=== PATIENT | female | born 1950 | race Caucasian/White ===

== ENCOUNTER 2018-06-23 07:31 | Inpatient (IN) ==
--- NOTE | 2018-06-23 07:46 | Emergency Department Report ---
General Adult HPI - General Chief complaint: Nausea/Vomiting/Diarrhea Stated complaint: pelvic cramping, bloody stools Time Seen by Provider: 06/23/18 07:45 Source: patient Mode of arrival: ambulatory Limitations: no limitations - History of Present Illness HPI narrative: 68 F since to the emergency department with a chief complaint of lower abdominal cramping and bloody stool. Patient states she noted onset of symptoms yesterday evening. Cramping is mild. It is dull. No radiation. Patient has noted "a handful of stools that have contained bright red blood since onset of symptoms." Patient is not anticoagulated. She denies any trauma , travel, poorly prepared food, or recent antibiotic use. She does have a history of similar symptoms in the past when she had Escherichia coli. She was at home when her symptoms began. Symptoms have been persistent in nature since onset. No other complaints or associated symptoms. Her last EGD/colonoscopy was at this time approximately 5-6 years ago and was performed by Dr. Mcintosh. - Related Data Home Medications Medication Instructions Recorded Confirmed Atenolol [Tenormin] 12.5 mg PO BID 06/23/18 06/23/18 Cholecalciferol (Vitamin D3) 2,000 unit PO DAILY 06/23/18 06/23/18 [Vitamin D3] Levothyroxine Tab [Synthroid] 50 mcg PO MOTUWETHFR 06/23/18 06/23/18 Levothyroxine Tab [Synthroid] 100 mcg PO SUSA 06/23/18 06/23/18 Previous Rx's Medication Instructions Recorded Zestril (lisinopril) 40 mg tablet 20 mg PO BID #90 tab 10/10/17 Allergies Allergy/AdvReac Type Severity Reaction Status Date / Time ciprofloxacin Allergy Mild TORE Verified 06/23/18 09:47 STOMACH UP metronidazole Allergy Mild TORE UP Verified 06/23/18 09:47 STOMACH metoclopramide Allergy Unknown Verified 06/23/18 09:47 erythromycin base AdvReac Mild ABDOMINAL Verified 06/23/18 09:47 CRAMPS Procaine HCl Allergy Intermediate TACHYCARDIA Uncoded 04/10/18 11:31 Review of Systems Constitutional: Denies: fever, chills Eyes: Denies: eye pain, vision change ENT: Denies: ear pain, throat pain Cardiovascular: Denies: chest pain, palpitations Respiratory: Denies: cough, dyspnea Gastrointestinal: Reports: abdominal pain, diarrhea, hematochezia. Denies: nausea, vomiting, hematemesis Genitourinary: Denies: urgency, dysuria Musculoskeletal: Denies: back pain, arthralgia Integumentary: Denies: erythema, rash Neurological: Denies: headache, numbness, paresthesias Psychiatric: Denies: anxiety, depression Endocrine: Denies: polydipsia, polyuria Hematological/Lymphatic: Denies: easy bruising, lymphadenopathy Allergic/Immunologic: Denies: urticaria, itchy eyes PFS Patient Stated Medical History Cataracts Yes Hypertension Yes Gastrointestinal Bleeding Yes: HX OF WITH [facility] Medical History (Last Updated 06/23/18 @ 13:29 by AMRIK Crain) Intermittent palpitations (Chronic Medical) Situational anxiety (Acute Medical) Prediabetes (Chronic Medical) Osteoporosis (Chronic Medical) Mixed hyperlipidemia (Chronic Medical) GERD without esophagitis (Chronic Medical) Hypertension, benign (Chronic Medical) Postsurgical hypothyroidism (Chronic Medical ~1999) Clinically and chemically euthyroid. Multinodular goiter (nontoxic) (Resolved Medical) History of irradiation, presenting hazards to health (Inactive Medical) No evidence of neck mass to suggest thyroid malignancy. Colitis, enteritis, and gastroenteritis of presumed infectious origin (Resolved Medical) 2011 Melanoma (Inactive Medical) ankle - removed 1994 Surgical History: Melanoma on ankle 1994; Total hysterectomy 1996; Thyroidectomy 1999; Tonsillectomy and Adenoids 1954; Radiation on throat around mid 1949's; Basal cell cyst on head removed; Radiation treatments in nose for adenoids Family History: Family History (Last Reviewed 01/11/18 @ 09:02 by APOLINAR Romero) Mother Cancer of lung Father A-fib Brother Lupus Maternal Grandfather Liver cancer Maternal Grandmother Heart disease - Social History Smoking status: Never smoker Substance use type: does not use Alcohol intake: never Alcohol intake frequency: does not drink Physical Exam - Limitations Limitations: no limitations - General General appearance: alert, in no apparent distress - Normal Exams: Head:: Normocephalic without trauma Eyes:: Pupils are PERRLA w/ EOMI, No scleral icterus, irritation, or foreign bodies noted ENMT:: No facial trauma, nasal exudates, pharyngeal erythema, or exudates are noted Dental: No fractured, loose, or missing teeth noted Neck:: Full range of motion, without adenopathy, JVD, bruits or thyromegaly Chest/Respirations:: Clear all pierce, with good airflow, and symmetry bilaterally Cardiovascular:: Regular rate and rhythm, without murmur or gallop, Pulses 2+ all extremities, capillary refill, <2 seconds all extremities Abdomen:: Bowel sounds positive, soft, non-tender, non-distended, no hepatosplenomegaly, masses or bruits noted Lymphatic:: No lymphadenopathy, or lymphedema noted Musculoskeletal:: No tenderness, or deformity noted, good range of motion, all extremities Integumentary:: No rashes, hives, or bruising noted, hair and nails, without abnormality Neurological:: Patient is alert, and oriented, cranial nerves, motor/sensory/ cerebellar, exams w/o gross deficits, to observation Psychiatric:: Patient exhibits, appropriate attention, emotion and affect Course Vital Signs Temperature 98.5 F 06/23/18 07:31 Pulse Rate 113 H 06/23/18 07:31 Respiratory Rate 22 06/23/18 07:31 Blood Pressure 182/90 H 06/23/18 07:31 Pulse Oximetry 97 06/23/18 07:31 Temperature 99.2 F 06/23/18 16:51 Pulse Rate 70 06/23/18 16:51 Respiratory Rate 20 06/23/18 16:51 Blood Pressure 163/83 H 06/23/18 16:51 Pulse Oximetry 99 06/23/18 16:51 Medical Decision Making - [facility] Narrative Medical decision making narrative: Labs/imaging were discussed in detail with the patient and family and questions are answered. Patient is given 1 L normal saline intravenously. Patient declines offered analgesic pain medication in the emergency department. Patient is given Zosyn 4.5 g IV 1 at 1057 when sepsis was considered. She was never hypotensive in the emergency department and her lactic acid was less than 4.0. Patient is discussed with the hospitalist Dr. Santillan and will be admitted to her service in improved condition. Patient and family are in agreement with the current plan of management. No further orders from accepting physician is in agreement with the current plan of management. Patient is admitted to the hospital in improved condition. - Differential Diagnosis colitis, acute diverticulitis, GI bleed, food poisoning - Lab Data Result diagrams: 06/23/18 15:43 06/23/18 08:05 Lab Results 06/23/18 06/23/18 06/23/18 Range/Units 08:05 08:05 08:05 WBC 18.7 H (4.5-11.0) T/MM3 RBC 5.14 (4.00-5.20) M/MM3 Hgb 15.8 (12-16) GM/DL Hct 44.6 (36-46) % MCV 86.8 (80-100) UM3 MCH 30.7 (26-34) UUG MCHC 35.4 (31-37) GM/DL RDW Std Deviation 38.9 (36.9-50.2) FL Plt Count 231 (130-400) T/MM3 MPV 10.5 (9.4-12.4) UM3 Immature Gran % (Auto) Not performed Neut % (Auto) Not performed Lymph % (Auto) Not performed [place] % (Auto) Not performed Eos % (Auto) Not performed Baso % (Auto) Not performed Neut # (Auto) Not performed Lymph # (Auto) Not performed [place] # (Auto) Not performed Eos # (Auto) Not performed Baso # (Auto) Not performed Abs Immat Gran (auto) Not performed Neutrophils % (Manual) 81.0 H (33-66) % Band Neutrophils % 5.0 (0-6) % Lymphocytes % (Manual) 10.0 L (23-45) % Reactive Lymphs % 3.0 H (0-0) % Monocytes % (Manual) 1.0 (0-9.0) % Neutrophils # (Manual) 15.1 H (1.8-7.7) T/MM3 Band Neutrophils # 0.9 T/MM3 Lymphocytes # (Manual) 1.9 (1-4.8) T/MM3 Abs React Lymphs (Man) 0.6 H (0-0) T/MM3 Monocytes # (Manual) 0.2 (0-0.8) T/MM3 RBC Morph Comment Normal INR 1.02 (0.92-1.18) APTT 26.9 (24-36) SEC Turbidity < 20 (0-20) Sodium 144 (136-146) MEQ/L Potassium 3.8 (3.6-5) MEQ/L Chloride 104 (98-107) MEQ/L Carbon Dioxide 27 (22-30) MEQ/L Anion Gap 13 (5-15) meq/L BUN 15.0 (7-17) MG/DL Creatinine 0.7 (0.7-1.2) mg/dL Estimated Creat Clear 50 (>50) mL/min GFR Calculation 83 (>60) mL/min BUN/Creatinine Ratio 21 (6-26) RATIO Glucose 158 H (65-110) MG/DL Calculated Osmolality 281 H (261-280) MOSM/KG Calcium 9.4 (8.4-10.2) MG/DL Total Bilirubin 1.00 (0.20-1.30) MG/DL Icterus Index < 2 (0-7) AST 28 (14-36) U/L ALT 19 (1-35) U/L Alkaline Phosphatase 84 (38-126) U/L Troponin I (0-0.12) ng/ml Total Protein 8.0 (6.3-8.2) g/dL Albumin 4.8 (3.5-5.0) g/dL Globulin 3.2 (2.4-3.6) G/DL Albumin/Globulin Ratio 1.5 (1.1-2.2) RATIO Lipase 61 (23-300) U/L Plasma Lactate (0.6-2.2) MMOL/L Specimen Hemolysis < 15 (0-25) Ur Collection Type Urine Color (YELLOW) Urine Clarity Urine pH (5.0-8.0) Ur Specific [place] (1.015-1.025) Urine Protein (NEGATIVE) Urine Glucose (UA) (NEGATIVE) Urine Ketones (NEGATIVE) Urine Occult Blood (NEGATIVE) Urine Nitrate (NEGATIVE) Urine Bilirubin (NEGATIVE) Urine Urobilinogen (NORMAL) EU/DL Ur Leukocyte Esterase (NEGATIVE) Urine RBC (0-3) /HPF Urine WBC (0-5) /HPF Ur Squamous Epith Cells Urine Bacteria (NEGATIVE) Urine Mucus Ur Culture Indicated? Blood Type Antibody Screen 06/23/18 06/23/18 06/23/18 Range/Units 08:05 08:05 09:16 WBC (4.5-11.0) T/MM3 RBC (4.00-5.20) M/MM3 Hgb (12-16) GM/DL Hct (36-46) % MCV (80-100) UM3 MCH (26-34) UUG MCHC (31-37) GM/DL RDW Std Deviation (36.9-50.2) FL Plt Count (130-400) T/MM3 MPV (9.4-12.4) UM3 Immature Gran % (Auto) Neut % (Auto) Lymph % (Auto) [place] % (Auto) Eos % (Auto) Baso % (Auto) Neut # (Auto) Lymph # (Auto) [place] # (Auto) Eos # (Auto) Baso # (Auto) Abs Immat Gran (auto) Neutrophils % (Manual) (33-66) % Band Neutrophils % (0-6) % Lymphocytes % (Manual) (23-45) % Reactive Lymphs % (0-0) % Monocytes % (Manual) (0-9.0) % Neutrophils # (Manual) (1.8-7.7) T/MM3 Band Neutrophils # T/MM3 Lymphocytes # (Manual) (1-4.8) T/MM3 Abs React Lymphs (Man) (0-0) T/MM3 Monocytes # (Manual) (0-0.8) T/MM3 RBC Morph Comment INR (0.92-1.18) APTT (24-36) SEC Turbidity (0-20) Sodium (136-146) MEQ/L Potassium (3.6-5) MEQ/L Chloride (98-107) MEQ/L Carbon Dioxide (22-30) MEQ/L Anion Gap (5-15) meq/L BUN (7-17) MG/DL Creatinine (0.7-1.2) mg/dL Estimated Creat Clear (>50) mL/min GFR Calculation (>60) mL/min BUN/Creatinine Ratio (6-26) RATIO Glucose (65-110) MG/DL Calculated Osmolality (261-280) MOSM/KG Calcium (8.4-10.2) MG/DL Total Bilirubin (0.20-1.30) MG/DL Icterus Index (0-7) AST (14-36) U/L ALT (1-35) U/L Alkaline Phosphatase (38-126) U/L Troponin I < 0.012 (0-0.12) ng/ml Total Protein (6.3-8.2) g/dL Albumin (3.5-5.0) g/dL Globulin (2.4-3.6) G/DL Albumin/Globulin Ratio (1.1-2.2) RATIO Lipase (23-300) U/L Plasma Lactate (0.6-2.2) MMOL/L Specimen Hemolysis < 15 (0-25) Ur Collection Type Urine, void-cc/notcc Urine Color Other (YELLOW) Urine Clarity Clear Urine pH 6.5 (5.0-8.0) Ur Specific [place] <=1.005 L (1.015-1.025) Urine Protein Negative (NEGATIVE) Urine Glucose (UA) Negative (NEGATIVE) Urine Ketones Negative (NEGATIVE) Urine Occult Blood 1+ A (NEGATIVE) Urine Nitrate Negative (NEGATIVE) Urine Bilirubin Negative (NEGATIVE) Urine Urobilinogen 0.2 (NORMAL) EU/DL Ur Leukocyte Esterase Negative (NEGATIVE) Urine RBC 0-1 (0-3) /HPF Urine WBC 0-1 (0-5) /HPF Ur Squamous Epith Cells 0-5 Urine Bacteria None seen (NEGATIVE) Urine Mucus Present Ur Culture Indicated? Cult not indicated Blood Type O Positive Antibody Screen Negative 06/23/18 Range/Units 10:03 WBC (4.5-11.0) T/MM3 RBC (4.00-5.20) M/MM3 Hgb (12-16) GM/DL Hct (36-46) % MCV (80-100) UM3 MCH (26-34) UUG MCHC (31-37) GM/DL RDW Std Deviation (36.9-50.2) FL Plt Count (130-400) T/MM3 MPV (9.4-12.4) UM3 Immature Gran % (Auto) Neut % (Auto) Lymph % (Auto) [place] % (Auto) Eos % (Auto) Baso % (Auto) Neut # (Auto) Lymph # (Auto) [place] # (Auto) Eos # (Auto) Baso # (Auto) Abs Immat Gran (auto) Neutrophils % (Manual) (33-66) % Band Neutrophils % (0-6) % Lymphocytes % (Manual) (23-45) % Reactive Lymphs % (0-0) % Monocytes % (Manual) (0-9.0) % Neutrophils # (Manual) (1.8-7.7) T/MM3 Band Neutrophils # T/MM3 Lymphocytes # (Manual) (1-4.8) T/MM3 Abs React Lymphs (Man) (0-0) T/MM3 Monocytes # (Manual) (0-0.8) T/MM3 RBC Morph Comment INR (0.92-1.18) APTT (24-36) SEC Turbidity (0-20) Sodium (136-146) MEQ/L Potassium (3.6-5) MEQ/L Chloride (98-107) MEQ/L Carbon Dioxide (22-30) MEQ/L Anion Gap (5-15) meq/L BUN (7-17) MG/DL Creatinine (0.7-1.2) mg/dL Estimated Creat Clear (>50) mL/min GFR Calculation (>60) mL/min BUN/Creatinine Ratio (6-26) RATIO Glucose (65-110) MG/DL Calculated Osmolality (261-280) MOSM/KG Calcium (8.4-10.2) MG/DL Total Bilirubin (0.20-1.30) MG/DL Icterus Index (0-7) AST (14-36) U/L ALT (1-35) U/L Alkaline Phosphatase (38-126) U/L Troponin I (0-0.12) ng/ml Total Protein (6.3-8.2) g/dL Albumin (3.5-5.0) g/dL Globulin (2.4-3.6) G/DL Albumin/Globulin Ratio (1.1-2.2) RATIO Lipase (23-300) U/L Plasma Lactate 2.1 (0.6-2.2) MMOL/L Specimen Hemolysis (0-25) Ur Collection Type Urine Color (YELLOW) Urine Clarity Urine pH (5.0-8.0) Ur Specific [place] (1.015-1.025) Urine Protein (NEGATIVE) Urine Glucose (UA) (NEGATIVE) Urine Ketones (NEGATIVE) Urine Occult Blood (NEGATIVE) Urine Nitrate (NEGATIVE) Urine Bilirubin (NEGATIVE) Urine Urobilinogen (NORMAL) EU/DL Ur Leukocyte Esterase (NEGATIVE) Urine RBC (0-3) /HPF Urine WBC (0-5) /HPF Ur Squamous Epith Cells Urine Bacteria (NEGATIVE) Urine Mucus Ur Culture Indicated? Blood Type Antibody Screen - Radiology Data CT ABD/PELVIS: Mild descending colon and moderate sigmoid colon colitis. This could be due to infectious, inflammatory or ischemic process. - EKG Data EKG #1 EKG results narrative: Sinus rhythm. 97 bpm. No STEMI. Disposition Clinical Impression: Colitis GI bleed Qualifiers: GI bleed type/associated pathology: unspecified gastrointestinal hemorrhage type Qualified Code(s): K92.2 - Gastrointestinal hemorrhage, unspecified Disposition: [address] [facility] [place] Condition: Stable Time of Disposition: 10:32 - Seen By: physician
[2018-06-23] MEDS ORDERED: NS 1,000 ML IV ONE (07:58)
[2018-06-23] MEDS: SALINE FLUSH 10ml SYRINGE IVF PRN (08:06)
[2018-06-23] MEDS ORDERED: IOHEXOL 300mg/ml 100ml INJECTION ONE (09:20)
[2018-06-23] MEDS ORDERED: PIPERACILLIN/TAZOBACTAM 4.5 GM in NS 100 ML IV ONE (10:57)
[2018-06-23 11:56] VITALS: BMI 20.6
[2018-06-23] MEDS: POTASSIUM CHLORIDE INJ 20 MEQ in NS 1,000 ML IV SCH ×2 (12:57→22:40)
[2018-06-23] MEDS ORDERED: MORPHINE SULFATE 4mg INJECTION IVP PRN (12:59)
[2018-06-23] MEDS ORDERED: ONDANSETRON 4 MG/2 ML INJECTION IVP PRN (12:59)
--- NOTE | 2018-06-23 13:22 | History & Physical Report ---
History of Present Illness Date: 06/23/18 Chief complaint: severe sepsis, colitis HPI: Lurdes Barreto is a very pleasant 68-year-old female patient whom routinely follows with Katey Bella APRN. She reports that yesterday while running errands, she abruptly began to have lower abdominal pain and cramping. She immediately went home and reports that she "nearly passed out" and "became very sweaty and nauseated" due to her pain. She denies any vomiting. No fevers, chest pain or shortness of breath. After having a large bout of diarrhea, she reports that her pain improved. Unfortunately, as the night progressed, she began having bright red blood diarrhea stools with severe abdominal pain and cramping about every 15 minutes throughout the night. She has history of E. coli colitis about 4-5 years ago which resulted in a 6 day hospitalization. 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 She denies any recent travel, bad food exposure, new medications, recent antibiotics or sick contacts. She presented to [facility] [place] ED this morning, 06/23/18, for further evaluation. Upon arrival, she was tachycardic (HR 113) and tachypneic (RR 22) with hypertension (182/90). Labs revealed leukocytosis (WBC 18.7) with 5% bandemia. Hemoglobin was stable despite reports of significant about of bright red blood in stools. Electrolytes were relatively unremarkable with the exception of hyperglycemia (Glu 158) with a known history of prediabetes. Lactate was elevated at 2.1 and UA was unremarkable. CT abdomen/ pelvis revealed mild descending colon and moderate sigmoid colitis. She reports that she has previously been seen by Dr. Micntosh with a "normal" EGD and colonoscopy about 4 years ago. She denies any history with her or her family for ulcerative colitis, Crohn's disease, colon polyps or diverticular disease. Due to her apparent severe sepsis most likely secondary to her colitis and hematochezia, Dr. Santillan was consulted and she was admitted into inpatient status for further evaluation, close hemodynamic monitoring, IV fluids and IV antibiotics. While in the ED, she received 1L NS and Zosyn was initiated for empiric antimicrobial coverage of suspected GI pathogens given her medication allergies and intolerances. Review of Systems All systems PM: 10-point ROS was reviewed, no additional remarkable complaints except - Constitutional Constitutional: Absent: chills, fatigue, fever(s), weakness - EENMT Eyes: Absent: diplopia, loss of vision Ears: Absent: ear pain Balance: Absent: falling to one side Nose: Absent: nosebleeds, allergies Mouth/Throat: Present: dry mouth, other (metalic taste in mouth). Absent: sore throat, changes in swallowing - Cardiovascular Cardiovascular: Absent: chest pain, palpitations, syncope, dyspnea on exertion, orthopnea, edema, heart murmur Rhythm: Present: regular rhythm Vascular: Absent: pallor of an extermity, pedal edema, unilateral swelling - Respiratory Respiratory: Absent: cough, dyspnea, hemoptysis, dyspnea on exertion, wheezing, pain on inspiration - Gastrointestinal Gastrointestinal: Present: abdominal pain (lower abdomen - cramping), change in bowel habits, change in stool character, diarrhea, hematochezia, nausea. Absent : vomiting - Genitourinary Genitourinary: Absent: dysuria, flank pain, hematuria Menstruation: post hysterectomy - Musculoskeletal Musculoskeletal: Absent: back pain, deformity, limited range of motion, muscle weakness - Integumentary/Breasts Integumentary: Absent: rash - Neurological Neurological: Absent: confusion, dizziness, focal weakness, weakness - Psychiatric Psychiatric: Present: anxiety - Endocrine Endocrine: Absent: flushing, palpitations - Hematologic/Lymphatic Hematologic/Lymphatic: Absent: lymphadenopathy - Allergic/Immunologic Allergic/Immunologic: Absent: seasonal rhinorrhea Past Medical History Medical History: Medical History (Last Updated 06/23/18 @ 13:29 by AMRIK Crain) Pre-diabetes (Chronic) Intermittent palpitations (Chronic) Situational anxiety (Acute) Prediabetes (Chronic) Osteoporosis (Chronic) Mixed hyperlipidemia (Chronic) GERD without esophagitis (Chronic) Hypertension, benign (Chronic) Postsurgical hypothyroidism (Chronic) Onset Date: ~1999 Clinically and chemically euthyroid. Multinodular goiter (nontoxic) (Resolved) History of irradiation, presenting hazards to health (Inactive) No evidence of neck mass to suggest thyroid malignancy. Colitis, enteritis, and gastroenteritis of presumed infectious origin 2011 Melanoma ankle - removed 1994 Surgical History: Melanoma on ankle 1994; Total hysterectomy 1996; Subtotal thyroidectomy 1999; Tonsillectomy and Adenoids 1954; Radiation on throat around mid s for pharyngitis; Basal cell cyst on head removed; Radiation treatments in nose for adenoids as a child. Family History: Family History Mother , 56 Cancer of lung Father , 86 A-fib Hypertension Brother Lupus Diabetes Sjogren's disease Maternal Grandfather Liver cancer Maternal Grandmother Heart disease Family History: As Above - Social History Smoking status: Never smoker second hand exposure: No Substance use type: does not use Alcohol intake frequency: does not drink Housing: house Household members: spouse ( 41 years) Current occupational status: retired Does patient use chewing tobacco?: No Current residence: Apartment/Private Home Social history: PCP - Katey Bella APRN. Endo - Dr. Russell. Surg - Dr. Mcitnosh (colonscopies and EGDs) Surg - Dr. Nails (skin cancer removal) Medications Home Medications Medication Instructions Recorded Confirmed Type Zestril (lisinopril) 40 mg tablet 20 mg PO BID #90 tab 10/10/17 06/23/18 Rx Atenolol [Tenormin] 12.5 mg PO BID 06/23/18 06/23/18 History Cholecalciferol (Vitamin D3) 2,000 unit PO DAILY 06/23/18 06/23/18 History [Vitamin D3] Levothyroxine Tab [Synthroid] 50 mcg PO MOTUWETHFR 06/23/18 06/23/18 History Levothyroxine Tab [Synthroid] 100 mcg PO SUSA 06/23/18 06/23/18 History Allergies Allergy/AdvReac Type Severity Reaction Status Date / Time ciprofloxacin Allergy Mild TORE Verified 06/23/18 09:47 STOMACH UP metronidazole Allergy Mild TORE UP Verified 06/23/18 09:47 STOMACH metoclopramide Allergy Unknown Verified 06/23/18 09:47 erythromycin base AdvReac Mild ABDOMINAL Verified 06/23/18 09:47 CRAMPS Procaine HCl Allergy Intermediate TACHYCARDIA Uncoded 04/10/18 11:31 Exam Vital Signs: Temperature 98.3 F 06/23/18 11:54 Pulse Rate 97 06/23/18 11:54 Respiratory Rate 12 06/23/18 11:54 Blood Pressure 151/79 H 06/23/18 11:54 Pulse Oximetry 96 06/23/18 11:54 Height/Weight/BMI: Height 5 ft 6 in Weight 127 lb 13.89 oz Body Mass Index 20.6 Comments: Very pleasant, resting in bed with family at bedside. - Constitutional Present: no acute distress, well nourished, well developed, thin, cooperative - Routine HEENT Exam Head: Present: normocephalic, atraumatic Eye: Present: PERRL. Absent: conjunctival icterus ENT: Present: mucous membranes dry, oropharynx clear - Routine Neck Exam Present: supple, full ROM, trachea midline - Routine Chest/Breast/Axilla Exam Chest wall: Absent: pacemaker - Routine Respiratory Exam Present: CTA bilaterally. Absent: respiratory distress, wheezes - Routine Cardiovascular Exam Present: RRR, S1, S2, no murmur - Routine Abdominal Exam Present: soft, normoactive bowel sounds, tenderness (LLQ, mild), non distended. Absent: rebound, guarding - Routine Rectal Exam Comments: Reportedly grossly bloody stools per RN. - Routine Extremities Exam Present: no edema, non tender, full ROM, pulses intact - Routine Back/Spine/Pelvis Exam Back/Spine: Present: full ROM. Absent: CVA tenderness, paraspinal tenderness, vertebral tenderness - Routine Skin Exam Present: intact, dry, warm Comments: afebrile - Routine Neurological Exam Present: alert, oriented X3, CN II-XII intact, moving all extremities, hearing grossly intact, normal speech - Routine Psychiatric Exam Present: normal affect, cooperative, good insight, good judgment Results - Labs CBC & Chem 7: 06/23/18 15:43 06/23/18 08:05 Microbiology Results: Microbiology 06/23/18 10:03 Peripheral/Iv Start Blood Culture - Preliminary Culture Initiated - Results Pending 06/23/18 08:05 Peripheral/Iv Start Blood Culture - Preliminary Culture Initiated - Results Pending Assessment and Plan (1) GI bleed Current visit: Yes Status: Acute Assessment and Plan: Assessment: Severe sepsis as indicated by tachycardia, tachypnea, leukocytosis, elevated lactate. Acute colitis, descending and sigmoid, presumed infectious. History of colitis secondary to E. coli ~2013. Hypertension. Pre-diabetes. GERD. Mixed hyperlipidemia, diet controlled. Postsurgical hypothyroidism - follows with Dr. Russell. History of intermittent palpitations. Situational anxiety. Plan - 06/23/18: Admit to inpatient status under the care of Dr. Santillan. CT in ED revealed descending and sigmoid colitis. Patient was given 1L NS bolus in ED. Will continue NS with KCL 20 mEq IV at 125cc/hr for hydration. Zosyn was initiated in ED for coverage of suspected GI pathogens. Will continue Zosyn for antimicrobial coverage while awaiting stool culture as well as blood cultures. Lactate 2.1 on admission. Monitor serial lactates. Currently afebrile. Clear liquid diet, low sugar for bowel rest. Hemoglobin stable on admission. Monitor closely given grossly bloody diarrhea. Tylenol as needed for fever pain. Morphine for pain control and zofran as needed for nausea/vomiting. Recheck labs in AM to monitor blood counts, electrolytes and renal function. Consider monitoring serial hemoglobins if bloody diarrhea worsens. Upon discharge, her care will be returned to Katey Colmenares. DVT Prophylaxis: SCD's Resuscitation Status: Full Code - Time spent with patient Time with patient PN: 70 minutes - Physician Narrative Physician: Lidia Santillan MD Narrative: Date: 06/23/18 Time: 1700 I have independently evaluated and examined this patient. I reviewed the chart, the patient's history, and the ENVIRONMENTAL TECHNOLOGY PROFESSOR/PA's documented findings as above. We discussed and formulated the assessment and plan as above with additions as below: Mrs. Barreto describes abrupt onset of abdominal cramping with diaphoresis and diarrhea yesterday at approximately 4 PM followed later by onset of bloody diarrhea occurring at nearly 15 minute intervals all night long. She presented to the emergency room this morning where CT demonstrated thickening in the sigmoid colon consistent with colitis. Cramping and frequency of diarrhea are improving as the day has gone on today with approximately 2 hour interval between last 2 small stools. Patient has a past history of hemorrhagic colitis due to Escherichia coli 0157 in 2013. NAD, alert, fluent speech, 99.2; hemodynamically stable Respirations nonlabored, good airflow, breath sounds clear Regular rhythm, S1-S2 Abdomen soft, nontender, active bowel sounds present Hemoglobin 15.8-14.0; INR 1.02, PTT 26.9 seconds Lactic acid 2.1-1.3 CT abdomen pelvis reviewed by myself-thickening in sigmoid colon as noted above , no free air, no abscess. GI panel negative for tested pathogens GI bleed, colitis-infectious origins suspected Monitor serial hemoglobins in addition to plans previously described. Type and cross sent although current hemoglobins are reassuringly normal and volume of blood loss appears to be diminishing rapidly. Blood has not yet been cross-matched Case discussed with Dr. Callaway and Dr. Mcintosh; may require repeat colonoscopy if no evidence of infectious pathogen can be identified. May require repeat stool testing for pathogens when bleeding less vigorously. Continue empiric antibiotics with Zosyn although does decreased 3.375 g every 6 hours for abdominal coverage. Sepsis Assessment - Evaluation SIRS Criteria: pulse > 90 beats/minute, WBC > 12,000, RR > 20 Severe Sepsis: lactate > 2.0 mg/dL Hospital Course Summary Disclaimer: The visit summary below is not to be considered part of the above Progress Note. Hospital Course: 06/23/18: Admit to inpatient status under the care of Dr. Santillan. CT in ED revealed descending and sigmoid colitis. Patient was given 1L NS bolus in ED. Will continue NS with KCL 20 mEq IV at 125cc/hr for hydration. Zosyn was initiated in ED for coverage of suspected GI pathogens. Will continue Zosyn for antimicrobial coverage while awaiting stool culture as well as blood cultures. Lactate 2.1 on admission. Monitor serial lactates. Currently afebrile. Clear liquid diet, low sugar for bowel rest. Hemoglobin stable on admission. Monitor closely given grossly bloody diarrhea. Tylenol as needed for fever pain. Morphine for pain control and zofran as needed for nausea/vomiting. Recheck labs in AM to monitor blood counts, electrolytes and renal function. Consider monitoring serial hemoglobins if bloody diarrhea worsens. Upon discharge, her care will be returned to Katey Colmenares.
[2018-06-23] MEDS: LEVOTHYROXINE 100 MCG TABLET PO SCH (13:54)
[2018-06-23] MEDS ORDERED: PIPERACILLIN/TAZOBACTAM 4.5 GM in NS 100 ML IV SCH (16:00)
[2018-06-23] MEDS: ACETAMINOPHEN 325 MG TABLET PO PRN ×2 (17:57→23:14)
[2018-06-23] MEDS: LISINOPRIL 20 MG TABLET PO SCH (20:54)
[2018-06-23] MEDS: ATENOLOL 25 MG TABLET PO SCH (20:54)
[2018-06-23] MEDS: NS with KCL 20 mEq 1,000 ML IV SCH (22:19)
[2018-06-23] MEDS: PIPERACILLIN/TAZOBACTAM 3.375 GM in NS 100 ML IV SCH (23:14)
[2018-06-24] MEDS: LEVOTHYROXINE 100 MCG TABLET PO SCH (05:53)
[2018-06-24] MEDS: PIPERACILLIN/TAZOBACTAM 3.375 GM in NS 100 ML IV SCH ×4 (05:54→23:08)
[2018-06-24] MEDS: ACETAMINOPHEN 325 MG TABLET PO PRN ×3 (06:21→17:54)
[2018-06-24] MEDS: NS with KCL 20 mEq 1,000 ML IV SCH ×2 (08:47→13:00)
[2018-06-24] MEDS: ATENOLOL 25 MG TABLET PO SCH ×2 (08:47→20:56)
[2018-06-24] MEDS: LISINOPRIL 20 MG TABLET PO SCH ×2 (08:47→20:56)
--- NOTE | 2018-06-24 13:09 | CT Scan Report ---
Indication: Lower abd pain PROCEDURE: CT abdomen pelvis w con: Encounter: Initial Comparison: July 26, 2016 Technique: Axial CT images were performed through the abdomen and pelvis after the administration of intravenous contrast. Coronal and sagittal two-dimensional reformats. Automated Exposure Control and Iterative Reconstruction dose reducing techniques were utilized. Contrast: Omnipaque 300 67 mL Findings: The lung bases are clear. The liver, gallbladder, spleen, pancreas and adrenal glands are within normal limits. The kidneys are normal. Bladder is normal. Uterus is absent. Diffuse wall thickening and inflammation in the mid to distal sigmoid colon. There is also mild wall thickening in the descending colon. The remaining bowel appears normal. Bone windows show no acute findings. Impression: Extensive left-sided colitis could represent infectious or inflammatory colitis. Ulcerative colitis is within the differential. There is a preliminary report by [employer]. .
--- NOTE | 2018-06-24 13:13 | Progress Note ---
- Date 06/24/18 Subjective: Lurdes is seen this morning in follow up. She states that overall she is feeling better than yesterday. She does continue to have mild lower abdominal cramping with bowel movements. She did have one bowel movement this morning with a small amount of blood present. Denies having current abdominal pain or nausea. Tolerating PO clear liquid diet. Remains afebrile. BP pressure elevated 161/86. Objective Vital signs: Temperature 97.7 F 06/24/18 03:00 Pulse Rate 64 06/24/18 11:00 Respiratory Rate 16 06/24/18 11:00 Blood Pressure 161/86 H 06/24/18 11:00 Pulse Oximetry 97 06/24/18 11:00 Height/Weight/BMI: Height 1.68 m Weight 57.2 kg Body Mass Index 20.6 - Constitutional Present: no acute distress, well nourished, well developed - Routine HEENT Exam Eye: Present: EOMI ENT: Present: mucous membranes moist, dentition normal - Routine Respiratory Exam Present: CTA bilaterally. Absent: wheezes - Routine Cardiovascular Exam Present: RRR, S1, S2. Absent: murmur - Routine Abdominal Exam Present: soft, non distended, non tender. Absent: normoactive bowel sounds ( hypotensive) - Routine Extremities Exam Present: no edema - Routine Skin Exam Present: intact, dry, warm - Routine Neurological Exam Present: alert, oriented X3, CN II-XII intact - Routine Lymphatic Exam Lymphatic: Absent: adenopathy - Routine Psychiatric Exam Present: normal affect Results - Labs CBC & Chem 7: 06/24/18 12:02 06/24/18 04:16 Microbiology Results: Microbiology 06/23/18 10:03 Peripheral/Iv Start Blood Culture - Preliminary No Growth After 1 Day 06/23/18 08:05 Peripheral/Iv Start Blood Culture - Preliminary No Growth After 1 Day Assessment and Plan (1) GI bleed Current visit: Yes Status: Acute Assessment and Plan: Assessment: Severe sepsis as indicated by tachycardia, tachypnea, leukocytosis, elevated lactate. Acute colitis, descending and sigmoid, presumed infectious. History of colitis secondary to E. coli ~2013. Hypertension. Pre-diabetes. GERD. Mixed hyperlipidemia, diet controlled. Postsurgical hypothyroidism - follows with Dr. Russell. History of intermittent palpitations. Situational anxiety. Plan - 8/12 Will recheck a stool panel today Continue on IV Zosyn for antimicrobial coverage Overall bleeding has slowed down today Continue with liquid diet at this time Will discuss recommendations with Dr Mcintosh Monitor blood pressure- on lisinopril and atenolol Hgb down 2 gms from admission however is stable- Continue to follow She voices concern regarding TSH of 0.49. She would like to talk with Dr Russell regarding dose changes as she has been symptomatic Usual TSH runs around 1. Case discussed with attending, Dr Santillan DVT Prophylaxis: SCD's Resuscitation Status: Full Code - Physician Narrative Physician: Lidia Santillan MD Narrative: Date: 06/24/18 Time: 1700 I have independently evaluated and examined this patient. I reviewed the chart, the patient's history, and the STROBOSCOPE OPERATOR/PA's documented findings as above. We discussed and formulated the assessment and plan as above with additions as below: Lurdes reported significant improvement in abdominal cramping and diarrhea overnight with minimal bleeding. She is having urinary frequency from IV fluids however and getting up to void frequently interfered with sleep last night. She denied lightheadedness or dyspnea. NAD, alert Respirations nonlabored, breath sounds clear Abdomen soft, nontender, bowel sounds present Hemoglobin 15.8-14.0-13.5-13.6-13.6 LDH 519-inconsistent with ischemic bowel. Discussed with Dr. Mcintosh-plan repeat stool study if patient has stool with fecal content; if remains negative for identifiable infectious pathogen anticipate proceeding with colonoscopy approximately Monday. Formal CT report available indicating diffuse wall thickening/inflammation in the mid-distal sigmoid colon and mild wall thickening in the descending colon with normal bowel throughout the rest of the colon. Conclusion was extensive left-sided colitis-infectious versus inflammatory colitis. IV fluids decreased. Blood pressure moderately elevated-continue to monitor. Continue current management. Hospital Course Summary Disclaimer: The visit summary below is not to be considered part of the above Progress Note. Hospital Course: 06/23/18: Admit to inpatient status under the care of Dr. Santillan. CT in ED revealed descending and sigmoid colitis. 06/23/18 Patient was given 1L NS bolus in ED. Will continue NS with KCL 20 mEq IV at 125cc/hr for hydration. Zosyn was initiated in ED for coverage of suspected GI pathogens. Will continue Zosyn for antimicrobial coverage while awaiting stool culture as well as blood cultures. Lactate 2.1 on admission. Monitor serial lactates. Currently afebrile. Clear liquid diet, low sugar for bowel rest. Hemoglobin stable on admission. Monitor closely given grossly bloody diarrhea. Tylenol as needed for fever pain. Morphine for pain control and zofran as needed for nausea/vomiting. Recheck labs in AM to monitor blood counts, electrolytes and renal function. Consider monitoring serial hemoglobins if bloody diarrhea worsens. Upon discharge, her care will be returned to Katey Colmenares. 06/24/18 Will recheck a stool panel today Continue on IV Zosyn for antimicrobial coverage Overall bleeding has slowed down today Continue with liquid diet at this time Will discuss recommendations with Dr Mcintosh Monitor blood pressure- on lisinopril and atenolol Hgb down 2 gms from admission however is stable- Continue to follow She voices concern regarding TSH of 0.49. She would like to talk with Dr Russell regarding dose changes as she has been symptomatic Usual TSH runs around 1. Case discussed with attending, Dr Santillan
--- NOTE | 2018-06-24 17:01 | Consultation ---
DATE OF CONSULTATION 06/24/2018 HISTORY OF PRESENT ILLNESS This patient is 68 years old. 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 This patient was hospitalized in June 2013 at [facility] at [place], [place]. The main discharge diagnosis for this hospitalization was hemorrhagic colitis secondary to the E. coli 0157. The patient did have acute gastrointestinal tract bleeding and leukocytosis secondary to the hemorrhagic colitis. The patient was hospitalized for approximately six days at this time. The patient did develop the onset of some cramping abdominal pain, loose stools and rectal bleeding on 07/26/2016. The episodes started with some severe abdominal cramping at the lower abdomen. The patient then went to the bathroom and had a bowel movement which was initially loose and had a brown color. The patient then had another bowel movement about 30 minutes later which was mostly blood and was still watery. The patient did come to [facility] Emergency Room on 07/26/2016. White blood cell count at the emergency room was 16,100 with 1 band. Hemoglobin was 15.3. Hematocrit was 43.7. The patient did have a GI panel performed to look for infectious organisms that might be causing the diarrhea at the time of the emergency room visit. All the items on the GI panel were negative. The patient did have a CT scan of the abdomen and pelvis performed on 07/26/2016 at the time of the emergency room visit. The patient had moderate thickening of the wall of the stomach which was thought to possibly represent some inflammatory infectious gastritis. The patient had some mild thickening of the wall of the distal colon which was thought to possibly be due to underdistention or possibly mild colitis. The patient was placed on a clear liquid diet at the time of the emergency room visit. No antibiotics were started at this time. The patient was advised at the time of the emergency room visit to have a colonoscopy procedure performed. Dr. Mcintosh did start the patient on some antibiotic treatment on 07/28/2016. The patient was started on treatment with Cipro 500 mg p.o. b.i.d. and Flagyl 500 mg p.o. t.i.d. The cramping abdominal pain and loose stools and rectal bleeding all resolved over the next few days. The patient did undergo esophagogastroduodenoscopy and total colonoscopy on by Dr. Mcintosh at [facility] at [place], [place]. Findings throughout the upper gastrointestinal tract were normal at esophagogastroduodenoscopy. The patient had normal findings at the colon and rectum at total colonoscopy. There was no colonic diverticulosis. There was no inflammatory bowel disease at the colon or rectum. No colitis was found at this total colonoscopy procedure. The patient did well after this until 06/22/2018. The patient developed the onset of some lower abdominal cramping pain at 4 p.m. on 06/22/2018. The patient did get back to her home after the pain began. The patient experienced some diaphoresis. She then experienced some diarrhea without any blood. The patient then began having rectal bleeding after this and more abdominal cramping. The patient continued to have cramping lower abdominal pain and rectal bleeding throughout the night of 06/22/2018. This was bright red blood. The patient did come to [facility] Emergency Room for evaluation on the morning of 06/23/2018 because of continued cramping lower abdominal pain and rectal bleeding. At the time of evaluation at the emergency room, the white blood cell count was 18,700 with 5% bands and 81% neutrophils. Hemoglobin was 15.0. Hematocrit was 44.6. The patient had a CT scan of the abdomen and pelvis performed at the time of evaluation at the emergency room. The CT scan shows mild descending colon colitis and moderate sigmoid colon colitis. The patient was given some intravenous Zosyn in the emergency room. The patient was then admitted to [facility]. The patient states that no other family members have similar gastrointestinal tract symptoms at this time. The patient has done no recent traveling. She has not been camping out. She has had no recent antibiotic treatment. The patient is on a clear liquid diet at this time at [facility]. She is receiving intravenous Zosyn. The patient still has some lower abdominal cramping but this is improved compared to what it was at the time of admission to the hospital. The patient is still having some rectal bleeding but this has slowed down compared to the time of admission to the hospital. The patient did have a GI panel performed since she was admitted to the hospital. The GI panel was negative but it was performed on a specimen of blood and not a specimen of stool. PAST MEDICAL HISTORY PREVIOUS OPERATIONS 1. Tonsillectomy when 4 years old at [place], [place]. 2. Wide excision of malignant melanoma site at right ankle in September [address] Toan Yang at [facility] at [place], [place]. 3. Laparoscopic-assisted vaginal hysterectomy with bilateral salpingo- oophorectomy on 01/28/[address] Mcintosh at [facility] at [place], [place]. Discharge diagnoses for this hospitalization were pelvic pain, dysmenorrhea, menometrorrhagia, pelvic adhesions, chronic uterine cystic cervicitis, uterine transmural and subendometrial leiomyomata, endometrial polyp , adenomatous hyperplasia (complex hyperplasia) of the uterine endometrium and follicular cyst of right ovary. 4. Subtotal thyroidectomy on 07/04/[address] Mcintosh at [facility] at [place], [place]. 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 5. Colonoscopy on 05/04/[address] Benjamin Nails at [facility] at [place], [place]. Findings were normal at the time of this colonoscopy procedure. 6. Esophagogastroduodenoscopy and colonoscopy on 08/12/[address] Mcintosh at [facility] at [place], [place]. This was performed because the patient had experienced a recent acute episode of cramping lower abdominal pain , diarrhea, rectal bleeding and leukocytosis. This was performed for evaluation of moderate thickening of the wall of the stomach which might represent inflammatory or infectious colitis demonstrated on a 07/26/2016 CT scan of the abdomen and pelvis. This was performed for evaluation of mild thickening of the distal colon which might be due to underdistention of the colon or mild colitis demonstrated on a 07/26/2016 CT scan of the abdomen and pelvis. The patient did have normal findings at the upper gastrointestinal tract at this esophagogastroduodenoscopy procedure. The patient had normal findings at the colon and rectum at the total colonoscopy procedure. There were no colon or rectal tumors. There were no colon or rectal polyps. There was no colonic diverticulosis. There was no inflammatory bowel disease found at the colon or rectum. There was no colitis found at the colon. 7. Left cataract operation on 06/10/[address] Bhavani Marcus at the [facility] at [place], [place]. PHYSICAL EXAM VITAL SIGNS: Temperature is 97.7 degrees Fahrenheit oral. Pulse is 62. Respiratory rate is 10. Blood pressure is 145/81. Oxygen saturation is 94% on room air. ABDOMEN: The abdomen is soft and nontender at this time. There are no abdominal masses. There are some old laparoscopy incision scars. RECTUM: There are no rectal masses. There is a small amount of dark red blood in the rectal vault at this time. There is no stool in the rectal vault at this time. LABORATORY DATA White blood cell count was 18,700 with 5 bands and 81% neutrophils on 2017. Hemoglobin was 15.8. Hematocrit was 44.9. The white blood cell count is 17,900 with 5 bands and 72% neutrophils this morning. Hemoglobin is 13.6. Hematocrit is 39.2. The patient did have a GI panel performed on 06/23/2018 and this had negative results although it was performed on a specimen of blood and not on a specimen of stool. IMAGING DATA The patient had a CT scan of the abdomen and pelvis performed at the emergency room evaluation on 06/23/2018. This shows some mild descending colon colitis and some moderate sigmoid colon colitis. IMPRESSION 1. Acute episode of cramping lower abdominal pain, diarrhea, rectal bleeding and leukocytosis. 2. Mild thickening of the wall of the descending colon suggestive of mild descending colitis and moderate thickening of the wall of the sigmoid colon suggesting moderate sigmoid colon colitis demonstrated on 06/23/2018 CT scan of the abdomen and pelvis. 3. Normal findings at the colon and rectum at total colonoscopy on 08/12/2016. 4. Hypertension. 5. Prediabetes. 5. Hypothyroidism following subtotal thyroidectomy. RECOMMENDATION 1. Continue clear liquid diet. 2. Continue intravenous Zosyn. 3. Continue to monitor white blood cell count, hemoglobin and hematocrit. 4. Repeat GI panel on a stool specimen if the patient begins to pass some liquid stool. 5. The patient may need a colonoscopy for evaluation of these symptoms and to evaluate the CT scan findings. PATIENT EDUCATION I did review with the patient today the nature of a colonoscopy procedure. She is familiar with this since she has had this performed before. Expected benefits were reviewed. Alternatives were reviewed. Potential risks and complications were reviewed. The patient does appear to understand. [facility]ITALNaif
[2018-06-24] MEDS: VANCOMYCIN 250mg/5ml ORAL LIQ PO SCH (20:56)
[2018-06-25] MEDS: NS with KCL 20 mEq 1,000 ML IV SCH ×3 (01:34→23:55)
[2018-06-25] MEDS: VANCOMYCIN 250mg/5ml ORAL LIQ PO SCH ×4 (03:48→20:37)
[2018-06-25] MEDS: PIPERACILLIN/TAZOBACTAM 3.375 GM in NS 100 ML IV SCH ×3 (05:52→17:11)
[2018-06-25] MEDS ORDERED: LEVOTHYROXINE 50 MCG TABLET PO SCH (06:00)
[2018-06-25] MEDS: ATENOLOL 25 MG TABLET PO SCH ×2 (09:08→20:35)
[2018-06-25] MEDS: LISINOPRIL 20 MG TABLET PO SCH ×2 (09:08→20:36)
--- NOTE | 2018-06-25 11:49 | Progress Note ---
- Date 06/25/18 Subjective: Lurdes is feeling better - less abdominal cramping and this morning she didn't see any blood mixed with diarrhea. However, she is very tired. She was up several times through the night to have a bowel movement. She feels weak overall. She denies nausea/vomiting. She denies chest pain or SOA. She is worried her Synthroid needs to be adjusted, she feels best when TSH is 1.5-2 range. She's been having hair loss, dry skin, and has felt her heart "flip flop " ever since her last visit with Dr. Russell in January. Objective Vital signs: Temperature 98.1 F 06/25/18 08:00 Pulse Rate 99 06/25/18 08:00 Respiratory Rate 16 06/25/18 08:00 Blood Pressure 159/93 H 06/25/18 08:00 Pulse Oximetry 97 06/25/18 08:00 Height/Weight/BMI: Height 1.68 m Weight 57 kg Body Mass Index 20.6 - Constitutional Present: no acute distress, well nourished, well developed, thin - Routine HEENT Exam Head: Present: normocephalic Eye: Present: PERRL. Absent: conjunctival icterus, scleral injection ENT: Present: mucous membranes moist, oropharynx clear - Routine Respiratory Exam Present: CTA bilaterally - Routine Cardiovascular Exam Present: RRR, S1, S2 - Routine Abdominal Exam Present: soft, normoactive bowel sounds (hyperactive), non distended, non tender - Routine Extremities Exam Present: no edema - Routine Skin Exam Present: intact, dry, warm - Routine Neurological Exam Present: alert, oriented X3, CN II-XII intact, normal speech - Routine Psychiatric Exam Present: normal affect, normal thought process, cooperative Results - Labs CBC & Chem 7: 06/25/18 03:51 06/25/18 03:51 Microbiology Results: Microbiology 06/23/18 10:03 Peripheral/Iv Start Blood Culture - Preliminary No Growth After 1 Day 06/23/18 08:05 Peripheral/Iv Start Blood Culture - Preliminary No Growth After 1 Day Assessment and Plan (1) GI bleed Current visit: Yes Status: Acute Assessment and Plan: Assessment: Severe sepsis as indicated by tachycardia, tachypnea, leukocytosis, elevated lactate. Acute colitis, descending and sigmoid, presumed infectious. History of colitis secondary to E. coli ~2013. Hypertension. Pre-diabetes. GERD. Mixed hyperlipidemia, diet controlled. Postsurgical hypothyroidism - follows with Dr. Russell. History of intermittent palpitations. Situational anxiety. Plan Repeat GI panel flagged positive for C. diff, surprising given negative sample less than 24 hours earlier. ? false positive. Continue oral Vanco and IV Zosyn at this time. WBC trending down, currently 15.4. Hematochezia resolved this am though she reports she continues to have frequent episodes of diarrhea. Hgb stable @ 13.9. Electrolytes are stable though she is at high risk for electrolyte/renal issues with frequent GI losses. Continue IVF. Sx of hair loss, dry skin and palpitations discussed with Dr. Russell; Currently on Synthroid 50 mcg on weekdays and 100 mcg on weekends. He recommends to take 50 mcg 6 days/wk and take 100 mcg on Monday only. DVT Prophylaxis: SCD's Resuscitation Status: Full Code - Physician Narrative Physician: Lidia Santillan MD Narrative: Date: 06/25/18 Time: 1714 I have independently evaluated and examined this patient. I reviewed the chart, the patient's history, and the CONTACT CENTER ASSISTANT/PA's documented findings as above. We discussed and formulated the assessment and plan as above with additions as below:debby Chatman reports ongoing diarrhea which is no longer bloody but associated with urgency; stools are small and yellowish after several large stools early in the day. She's had no fever. She was last treated with antibiotics in March when she had a URI and was on amoxicillin. NAD, alert; abdomen soft, nontender Confirmatory testing for C. difficile pending. Discontinue Zosyn, continue oral vancomycin Blood pressure consistently elevated on current regimen; add amlodipine 5 mg daily[address]iscuss[address] with Dr. Mcintosh. Hospital Course Summary Disclaimer: The visit summary below is not to be considered part of the above Progress Note. Hospital Course: 06/23/18: Admit to inpatient status under the care of Dr. Santillan. CT in ED revealed descending and sigmoid colitis. 06/23/18 Patient was given 1L NS bolus in ED. Will continue NS with KCL 20 mEq IV at 125cc/hr for hydration. Zosyn was initiated in ED for coverage of suspected GI pathogens. Will continue Zosyn for antimicrobial coverage while awaiting stool culture as well as blood cultures. Lactate 2.1 on admission. Monitor serial lactates. Currently afebrile. Clear liquid diet, low sugar for bowel rest. Hemoglobin stable on admission. Monitor closely given grossly bloody diarrhea. Morphine for pain control and zofran as needed for nausea/vomiting. Upon discharge, her care will be returned to [facility]. 06/24/18 Will recheck a stool panel today. Continue on IV Zosyn for antimicrobial coverage. Overall bleeding has slowed down today. Continue with liquid diet at this time. Monitor blood pressure- on lisinopril and atenolol Hgb down 2 gms from admission however is stable She voices concern regarding TSH of 0.49. She would like to talk with Dr Russell regarding dose changes as she has been symptomatic 06/25/18 Repeat GI panel flagged positive for C. diff, surprising given negative sample less than 24 hours earlier. ? false positive. Continue oral Vanco and IV Zosyn at this time. WBC trending down, currently 15.4. Hematochezia resolved this am though she reports she continues to have frequent episodes of diarrhea. Hgb stable @ 13.9. Electrolytes are stable though she is at high risk for electrolyte/renal issues with frequent GI losses. Continue IVF. Sx of hair loss, dry skin and palpitations discussed with Dr. Russell; Currently on Synthroid 50 mcg on weekdays and 100 mcg on weekends. He recommends to take 50 mcg 6 days/wk and take 100 mcg on Monday only.
--- NOTE | 2018-06-25 19:03 | Progress Note ---
DATE 06/25/2018 HISTORY The patient reports that she is no longer having any of the cramping abdominal pain that she had when she was admitted to the hospital. She states that her rectal bleeding has stopped. The diarrhea seemed to be gradually slowing down following admission to the hospital but the diarrhea has increased in frequency this afternoon. She has had 14 liquid bowel movements this afternoon. These were nonbloody liquid bowel movements with a yellow color. The patient states that she did tolerate some clear liquids for breakfast this morning but did not feel like drinking any of her clear liquid diet for lunch today and does not feel like she can drink any of her clear liquid diet for dinner this evening. PHYSICAL EXAMINATION VITAL SIGNS: Temperature is 97.6 degrees Fahrenheit oral. Pulse is 74. Respiratory rate is 16. Blood pressure is 159/86. Oxygen saturation is 98% on room air. ABDOMEN: The abdomen is soft and nontender at examination. LABORATORY DATA White blood cell count is 15,400 with no bands today. Hemoglobin is 13.9. Hematocrit is 39.2. A repeat GI panel was performed today. The stool Clostridium difficile toxin test is positive. IMPRESSION 1. Acute episode of cramping lower abdominal pain, diarrhea, rectal bleeding and leukocytosis at the time of admission to the hospital on 06/23/2018. 2. Resolution of cramping lower abdominal pain and rectal bleeding but increase in diarrhea today. 3. Leukocytosis which is improving. 4. Colitis at descending and sigmoid colon demonstrated on 06/23/2018 CT scan of the abdomen and pelvis. 5. Positive Clostridium difficile toxin PCR stool test on 06/24/2018. 6. Normal findings at the colon and rectum at total colonoscopy on 08/12/2016. 7. Hypertension. 8. Prediabetes. 9. Hypothyroidism following subtotal thyroidectomy. RECOMMENDATION 1. I do agree with the confirmatory test for Clostridium difficile which was ordered by Dr. Santillan and is pending at this time. 2. I agree with discontinuation of the intravenous Zosyn and initiation of the oral vancomycin antibiotic treatment by Dr. Santillan today. 3. I agree with possible Infectious Disease consultation. 4. Hold off on colonoscopy yet at this time until the patient has been evaluated further with less invasive modalities. [facility]
[2018-06-26] MEDS: VANCOMYCIN 250mg/5ml ORAL LIQ PO SCH ×4 (03:55→21:07)
[2018-06-26] MEDS: LEVOTHYROXINE 50 MCG TABLET PO SCH (06:46)
[2018-06-26] MEDS: AMLODIPINE 5 MG TABLET PO SCH (08:08)
[2018-06-26] MEDS: ATENOLOL 25 MG TABLET PO SCH ×2 (08:08→21:07)
[2018-06-26] MEDS: LISINOPRIL 20 MG TABLET PO SCH ×2 (08:08→21:07)
[2018-06-26] MEDS: NS with KCL 20 mEq 1,000 ML IV SCH ×2 (08:17→21:06)
--- NOTE | 2018-06-26 10:29 | Progress Note ---
- Date 06/26/18 Subjective: Patient is seen this morning sitting in bed. She reports that she's had 9 stools since 3 AM. She states the cramping is much better and she's not had any blood. She would like to increase her diet, but states the nurses talked to Dr. Mcintosh and he wants her to stick with liquids for now. Denies chest pain, shortness of breath, n/v, fever/chills. Objective Vital signs: Temperature 98.4 F 06/26/18 08:00 Pulse Rate 70 06/26/18 08:00 Respiratory Rate 17 06/26/18 08:00 Blood Pressure 163/82 H 06/26/18 08:00 Pulse Oximetry 95 06/26/18 08:00 Height/Weight/BMI: Height 1.68 m Weight 56.8 kg Body Mass Index 20.6 - Constitutional Present: no acute distress, well nourished, well developed - Routine HEENT Exam Head: Present: normocephalic, atraumatic - Routine Respiratory Exam Present: CTA bilaterally. Absent: wheezes - Routine Cardiovascular Exam Present: RRR, no murmur - Routine Abdominal Exam Present: soft, normoactive bowel sounds, non distended, non tender - Routine Extremities Exam Present: no edema, normal capillary refill - Routine Skin Exam Present: dry, warm - Routine Neurological Exam Present: alert, oriented X3 - Routine Lymphatic Exam Lymphatic: Absent: adenopathy - Routine Psychiatric Exam Present: normal affect, cooperative Results - Labs CBC & Chem 7: 06/26/18 04:13 06/26/18 04:13 Microbiology Results: Microbiology 06/23/18 08:05 Peripheral/Iv Start Blood Culture - Preliminary No Growth After 2 Days 06/23/18 10:03 Peripheral/Iv Start Blood Culture - Preliminary No Growth After 2 Days Assessment and Plan (1) GI bleed Current visit: Yes Status: Acute Assessment and Plan: Assessment: Severe sepsis as indicated by tachycardia, tachypnea, leukocytosis, elevated lactate. Acute colitis, descending and sigmoid, presumed infectious. + c diff on GI panel 06/24/18. History of colitis secondary to E. coli ~2013. Hypertension. Pre-diabetes. GERD. Mixed hyperlipidemia, diet controlled. Postsurgical hypothyroidism - follows with Dr. Russell. History of intermittent palpitations. Situational anxiety. Plan Leukocytosis resolved. C diff Ag/Toxin to confirm acute c diff infection is pending. Pt continues on oral Vanco (initiated 06/24/18) . IV Zosyn DC'd 06/25/18. BP improved with starting amlodipine this am. Electrolytes are stable though she is at high risk for electrolyte/renal issues with frequent GI losses. Continue IVF. DVT Prophylaxis: SCD's Resuscitation Status: Full Code - Physician Narrative Physician: Lidia Santillan MD Narrative: Date: 06/26/18 Time: 1440 I have independently evaluated and examined this patient. I reviewed the chart, the patient's history, and the JAILER CHIEF/PA's documented findings as above. We discussed and formulated the assessment and plan as above with additions as below: Lurdes reports having 10 liquid stools since 3:30 this morning-the first 8 were relatively large volume in the last 2 and small volume. She denies ongoing abdominal cramping or bleeding. I contacted the lab regarding turnaround time for the C. difficile toxin I learned that sample has not been received in the lab. NAD, alert, respirations nonlabored Abdomen soft, nontender C. difficile toxin being sent as soon as possible as confirmatory test although given change in pattern of diarrhea I suspect C. difficile is present and will require ongoing treatment. Continue vancomycin, add probiotics. Discussed with Dr. Mcintosh. Leukocytosis is resolved with oral vancomycin. Hospital Course Summary Disclaimer: The visit summary below is not to be considered part of the above Progress Note. Hospital Course: 06/23/18: Admit to inpatient status under the care of Dr. Santillan. CT in ED revealed descending and sigmoid colitis. 06/23/18 Patient was given 1L NS bolus in ED. Will continue NS with KCL 20 mEq IV at 125cc/hr for hydration. Zosyn was initiated in ED for coverage of suspected GI pathogens. Will continue Zosyn for antimicrobial coverage while awaiting stool culture as well as blood cultures. Lactate 2.1 on admission. Monitor serial lactates. Currently afebrile. Clear liquid diet, low sugar for bowel rest. Hemoglobin stable on admission. Monitor closely given grossly bloody diarrhea. Morphine for pain control and zofran as needed for nausea/vomiting. Upon discharge, her care will be returned to [facility]. 06/24/18 Will recheck a stool panel today. Continue on IV Zosyn for antimicrobial coverage. Overall bleeding has slowed down today. Continue with liquid diet at this time. Monitor blood pressure- on lisinopril and atenolol Hgb down 2 gms from admission however is stable She voices concern regarding TSH of 0.49. She would like to talk with Dr Russell regarding dose changes as she has been symptomatic 06/25/18 Repeat GI panel flagged positive for C. diff, surprising given negative sample less than 24 hours earlier. ? false positive. Continue oral Vanco and IV Zosyn at this time. WBC trending down, currently 15.4. Hematochezia resolved this am though she reports she continues to have frequent episodes of diarrhea. Hgb stable @ 13.9. Electrolytes are stable though she is at high risk for electrolyte/renal issues with frequent GI losses. Continue IVF. Sx of hair loss, dry skin and palpitations discussed with Dr. Russell; Currently on Synthroid 50 mcg on weekdays and 100 mcg on weekends. He recommends to take 50 mcg 6 days/wk and take 100 mcg on Monday only. 06/26/18 Leukocytosis resolved. C diff Ag/Toxin to confirm acute c diff infection is pending. Pt continues on oral Vanco (initiated 06/24/18) . IV Zosyn DC'd 06/25/18. BP improved with starting amlodipine this am. Electrolytes are stable though she is at high risk for electrolyte/renal issues with frequent GI losses. Continue IVF.
--- NOTE | 2018-06-26 16:09 | Progress Note ---
DATE 06/26/2018 HISTORY The patient is no longer having any cramping abdominal pain. She is no longer having any rectal bleeding. The patient continues to have diarrhea. She has had 10 liquid bowel movements so far since 3:30 this morning. A confirmatory test for Clostridium difficile toxin was ordered yesterday but a specimen has never been collected yet for this test and the test has not yet been done. This was reordered again today. The patient continues to take oral vancomycin which was started on 06/24/2018. PHYSICAL EXAMINATION VITAL SIGNS: Temperature is 97.9 degrees Fahrenheit oral. Pulse is 68. Respiratory rate is 18. Blood pressure is 145/79. Oxygen saturation is 98% on room air. ABDOMEN: The abdomen is soft and nontender. LABORATORY DATA White blood cell count is 9600 with no bands today. Hemoglobin is 14. Hematocrit is 39.8. IMPRESSION 1. Probable Clostridium difficile acute colitis. 2. Resolution of leukocytosis. RECOMMENDATION 1. I agree with the confirmatory test for Clostridium difficile toxin which has been ordered by Dr. Santillan. 2. I agree with the continuation of the oral vancomycin. 3. I agree with giving the patient some probiotics. MTDD
[2018-06-26] MEDS: LACTOBACILLUS (15B cfu) CAPSULE PO SCH (17:33)
[2018-06-27] MEDS: VANCOMYCIN 250mg/5ml ORAL LIQ PO SCH ×4 (03:55→21:09)
[2018-06-27] MEDS: LEVOTHYROXINE 50 MCG TABLET PO SCH (06:10)
[2018-06-27] MEDS: NS with KCL 20 mEq 1,000 ML IV SCH ×3 (07:33→21:23)
[2018-06-27] MEDS: LACTOBACILLUS (15B cfu) CAPSULE PO SCH ×2 (08:55→17:27)
[2018-06-27] MEDS: AMLODIPINE 5 MG TABLET PO SCH (08:55)
[2018-06-27] MEDS: ATENOLOL 25 MG TABLET PO SCH ×2 (08:55→21:08)
[2018-06-27] MEDS: LISINOPRIL 20 MG TABLET PO SCH ×2 (08:56→21:09)
--- NOTE | 2018-06-27 14:27 | Progress Note ---
DATE 06/27/2018 HISTORY The patient is no longer having any cramping abdominal pain. She is no longer having rectal bleeding. The patient states that her diarrhea has slowed down tremendously in the last 24 hours. The diarrhea is much improved today. A stool specimen was obtained yesterday for a confirmatory test for Clostridium difficile toxin but we are still awaiting the results of that yet at this time. The patient continues to take the oral vancomycin which was started on 2017. PHYSICAL EXAMINATION VITAL SIGNS: Temperature is 97.4 degrees Fahrenheit axillary. Pulse is 69. Respiratory rate is 16. Blood pressure is 145/87. Oxygen saturation is 98% on room air. ABDOMEN: The abdomen is soft and nontender. LABORATORY DATA White blood cell count is 7900 with no bands. Hemoglobin is 13.7. Hematocrit is 38.5. IMPRESSION 1. Probable Clostridium difficile acute colitis. 2. Resolution of leukocytosis. PLAN 1. Continue to await confirmatory test for Clostridium difficile toxin which has been ordered by Dr. Santillan. 2. I agree with continuation of the oral vancomycin. 3. I agree with giving the patient some probiotics. [facility]
--- NOTE | 2018-06-27 20:52 | Progress Note ---
- Date 06/27/18 Subjective: Lurdes reports feeling hungry and improvement in GI symptoms with minimal diarrhea today and only a couple very small loose stools. There is no abdominal pain or bleeding. She denies dizziness or lightheadedness. She remains afebrile area Objective Vital signs: Temperature 98.1 F 06/27/18 15:51 Pulse Rate 69 06/27/18 15:51 Respiratory Rate 16 06/27/18 15:51 Blood Pressure 158/85 H 06/27/18 15:51 Pulse Oximetry 98 06/27/18 15:51 NAD, alert, fluent speech Conjunctiva clear, sclera anicteric Respirations nonlabored Abdomen soft, nontender Extremities without edema Ambulating in room without difficulty or assistance Height/Weight/BMI: Height 1.68 m Weight 58.8 kg Body Mass Index 20.6 Results - Labs CBC & Chem 7: 06/27/18 04:05 06/27/18 04:05 Microbiology Results: Microbiology 06/26/18 14:41 Stool Clostridium difficile Antigen (CLOVIS) -negative; C. difficile toxin not detected 06/23/18 08:05 Peripheral/Iv Start Blood Culture - Preliminary No Growth After 4 Days 06/23/18 10:03 Peripheral/Iv Start Blood Culture - Preliminary No Growth After 4 Days Assessment and Plan (1) GI bleed Current visit: Yes Status: Acute Assessment and Plan: Assessment: Severe sepsis as indicated by tachycardia, tachypnea, leukocytosis, elevated lactate. Acute colitis, descending and sigmoid, presumed infectious. + c diff on GI panel 06/24/18. History of colitis secondary to E. coli ~2013. Hypertension. Pre-diabetes. GERD. Mixed hyperlipidemia, diet controlled. Postsurgical hypothyroidism - follows with Dr. Russell. History of intermittent palpitations. Situational anxiety. Plan Leukocytosis resolved. C diff Ag/Toxin returned late today and are negative. This leaves diagnosis uncertain. Discussed with Dr. Mcintosh and have tentatively planned flexible sigmoidoscopy in the morning. Continue oral vancomycin at this time on the outside chance that classic C. difficile findings are seen at sigmoidoscopy tomorrow. Remains on clear liquids, nothing by mouth after midnight with fleets enema early a.m., repeat enemas may be needed. Blood pressure remains modestly elevated but minimally active, continue amlodipine in conjunction with home medications. Hemoglobin, electrolytes stable. Plans discussed with nursing. DVT Prophylaxis: SCD's Resuscitation Status: Full Code - Physician Narrative Narrative: Date: 06/27/18 Time: 2047 Hospital Course Summary Disclaimer: The visit summary below is not to be considered part of the above Progress Note. Hospital Course: 06/23/18: Admit to inpatient status under the care of Dr. Santillan. CT in ED revealed descending and sigmoid colitis. 06/23/18 Patient was given 1L NS bolus in ED. Will continue NS with KCL 20 mEq IV at 125cc/hr for hydration. Zosyn was initiated in ED for coverage of suspected GI pathogens. Will continue Zosyn for antimicrobial coverage while awaiting stool culture as well as blood cultures. Lactate 2.1 on admission. Monitor serial lactates. Currently afebrile. Clear liquid diet, low sugar for bowel rest. Hemoglobin stable on admission. Monitor closely given grossly bloody diarrhea. Morphine for pain control and zofran as needed for nausea/vomiting. Upon discharge[facility] 06/[facility]18 Will recheck a stool panel today. Continue on IV Zosyn for antimicrobial coverage. Overall bleeding has slowed down today. Continue with liquid diet at this time. Monitor blood pressure- on lisinopril and atenolol Hgb down 2 gms from admission however is stable She voices concern regarding TSH of 0.49. She would like to talk with Dr Russell regarding dose changes as she has been symptomatic 06/25/18 Repeat GI panel flagged positive for C. diff, surprising given negative sample less than 24 hours earlier. ? false positive. Continue oral Vanco and IV Zosyn at this time. WBC trending down, currently 15.4. Hematochezia resolved this am though she reports she continues to have frequent episodes of diarrhea. Hgb stable @ 13.9. Electrolytes are stable though she is at high risk for electrolyte/renal issues with frequent GI losses. Continue IVF. Sx of hair loss, dry skin and palpitations discussed with Dr. Russell; Currently on Synthroid 50 mcg on weekdays and 100 mcg on weekends. He recommends to take 50 mcg 6 days/wk and take 100 mcg on Monday only. 06/26/18 Leukocytosis resolved. C diff Ag/Toxin to confirm acute c diff infection is pending. Pt continues on oral Vanco (initiated 06/24/18) . IV Zosyn DC'd 06/25/18. BP improved with starting amlodipine this am. Electrolytes are stable though she is at high risk for electrolyte/renal issues with frequent GI losses. Continue IVF. 06/27/18 Leukocytosis resolved. C diff Ag/Toxin returned late today and are negative. This leaves diagnosis uncertain. Discussed with Dr. Mcintosh and have tentatively planned flexible sigmoidoscopy in the morning. Continue oral vancomycin at this time on the outside chance that classic C. difficile findings are seen at sigmoidoscopy tomorrow. Remains on clear liquids, nothing by mouth after midnight with fleets enema early a.m., repeat enemas may be needed. Blood pressure remains modestly elevated but minimally active, continue amlodipine in conjunction with home medications. Hemoglobin, electrolytes stable.
[2018-06-28] MEDS: VANCOMYCIN 250mg/5ml ORAL LIQ PO SCH ×4 (03:10→21:42)
[2018-06-28] MEDS: LEVOTHYROXINE 50 MCG TABLET PO SCH (05:56)
[2018-06-28] MEDS: FLEET PHOSPHO - SODA ENEMA 133ml PR SCH ×3 (05:57→11:34)
[2018-06-28] MEDS: AMLODIPINE 5 MG TABLET PO SCH (08:41)
[2018-06-28] MEDS: ATENOLOL 25 MG TABLET PO SCH ×2 (08:41→21:41)
[2018-06-28] MEDS: LISINOPRIL 20 MG TABLET PO SCH ×2 (08:42→21:41)
[2018-06-28] MEDS: LACTOBACILLUS (15B cfu) CAPSULE PO SCH ×2 (08:42→17:18)
[2018-06-28] MEDS: SALINE FLUSH 10ml SYRINGE IVF PRN (08:43)
--- NOTE | 2018-06-28 11:33 | Anesthesia Preoperative Report ---
Anesthesia Preoperative Record - Date and Time Date: 06/28/18 Preoperative Diagnosis: Colitis, gi bleed Proposed Procedure: colonoscopy NPO Since Date: 06/27/18 NPO Since Time: 23:00 Allergies/Adverse Reactions: Allergies Allergy/AdvReac Type Severity Reaction Status Date / Time ciprofloxacin Allergy Mild TORE Verified 06/23/18 09:47 STOMACH UP metronidazole Allergy Mild TORE UP Verified 06/23/18 09:47 STOMACH metoclopramide Allergy Unknown Verified 06/23/18 09:47 erythromycin base AdvReac Mild ABDOMINAL Verified 06/23/18 09:47 CRAMPS Procaine HCl Allergy Intermediate TACHYCARDIA Uncoded 04/10/18 11:31 - Vital Signs Vital Signs: Temperature 97.5 F 06/28/18 08:31 Pulse Rate 77 06/28/18 08:31 Respiratory Rate 20 06/28/18 08:31 Blood Pressure 174/82 H 06/28/18 08:31 Pulse Oximetry 98 06/28/18 08:31 Height and Weight: Height 5 ft 6 in Weight 56 kg Body Mass Index 20.6 - Medications Inpatient Medications: Current Medications Acetaminophen (Tylenol) 650 mg PO Q5H PRN PRN Reason: Discomfort Last Admin: 06/24/18 17:54 Dose: 650 mg Amlodipine Besylate (Norvasc) 5 mg PO DAILY [facility] Last Admin: 06/28/18 08:41 Dose: 5 mg Atenolol (Tenormin) 12.5 mg PO BID [facility] Last Admin: 06/28/18 08:41 Dose: 12.5 mg Potassium Chloride/Sodium Chloride (Ns With Kcl 20 Meq Premix) 1,000 mls @ 50 mls/hr IV .Q20H [facility] Last Admin: 06/27/18 21:23 Dose: Not Given Lactated Ringer's (Lactated Ringers) 1,000 mls @ 50 mls/hr IV .Q20H [facility] Lactobacillus Acidophilus (Culturelle) 2 cap PO BIDWM [facility] Last Admin: 06/28/18 08:42 Dose: 2 cap Levothyroxine Sodium (Synthroid) 100 mcg PO SERRANO@0600 [facility] Levothyroxine Sodium (Synthroid) 50 mcg PO MOTUWETHFRSA@0600 [facility] Last Admin: 06/28/18 05:56 Dose: 50 mcg Lisinopril (Prinivil) 20 mg PO BID [facility] Last Admin: 06/28/18 08:42 Dose: 20 mg Morphine Sulfate (Morphine Sulfate Inj) 1 - 2 mg IVP Q2H PRN PRN Reason: Pain Ondansetron HCl (Zofran) 4 mg IVP Q6H PRN PRN Reason: Nausea &/or vomiting Sodium Chloride (Iv Flush) 10 - 80 ml IVF PRN PRN PRN Reason: Flushing Last Admin: 06/28/18 08:43 Dose: 10 ml Sodium Phosphate (Fleet Enema) 1 enema NC DAILY [facility] Last Admin: 06/28/18 06:19 Dose: Not Given Vancomycin HCl (Vancomycin Oral Liq) 125 mg PO Q6HR [facility] Stop: 07/04/18 20:59 Last Admin: 06/28/18 08:42 Dose: 125 mg Home Medications: Home Medications Medication Instructions Recorded Confirmed Type Zestril (lisinopril) 40 mg tablet 20 mg PO BID #90 tab 10/10/17 06/23/18 Rx Atenolol [Tenormin] 12.5 mg PO BID 06/23/18 06/23/18 History Cholecalciferol (Vitamin D3) 2,000 unit PO DAILY 06/23/18 06/23/18 History [Vitamin D3] Levothyroxine Tab [Synthroid] 50 mcg PO MOTUWETHFR 06/23/18 06/23/18 History Levothyroxine Tab [Synthroid] 100 mcg PO SUSA 06/23/18 06/23/18 History Is Patient on Beta Estefani?: Yes Beta Estefani Last Dose Date/Time: 06/28/2018 - Medical History Respiratory: DENIES: Asthma, Bronchitis, Chronic Obstructive Pulmonary Disease (COPD), Dyspnea, Orthopnea, Pulmonary Embolism, Pneumonia, Upper Respiratory Infection, Pulmonary Edema, Sleep Apnea, Tuberculosis, Other Cardiovascular: Reports: Hypertension DENIES: Abnormal EKG, Angina, Arrhythmia, Congestive Heart Failure, Coronary Artery Disease, Heart Murmur, Hypotension, High Cholesterol, Myocardial Infarction, Rheumatic Fever, Valvular Heart Disease, Other Gastrointestional: Reports: Nausea or Vomiting Present, Gastrointestinal Bleeding (HX OF WITH E.COLI-approx 4 yrs ago) DENIES: Obstructive Bowel, Hepatitis, Cirrhosis, Gastroesophageal Reflux Disease, Hiatal Hernia, Ulcer, Morbid Obesity, Other (cryptosporidium some yrs ago from drinking water on trip) Neuro/Musculoskeletal: Denies: Back Problems, Cerebrovascular Accident, Depression, Headaches, Loss of Consciousness, Muscle Weakness, Neuromuscular Disorder, Paralysis, Paresthesia, Syncope, Seizures, Other Renal/Endocrine: DENIES: Diabetes Mellitus Type 1, Diabetes Mellitus Type 2, Renal Failure, Dialysis, Thyroid Disease, Weight Loss, Weight Gain, Other Other History: Reports: Cancer (HX MELANOMA ON ANKLE, BASAL CELL TOP OF HEAD REMOVED) DENIES: Anesthesia Reactions, Now, Blood Transfusions, Chemotherapy , Hemophilia, Malignant Hyperthermia, Sickle Cell Disease, Other - Surgical History HEENT Surgeries: Reports: Eye Surgery (cataracts removed 06/10/18), Tonsillectomy Endocrine Surgery/Treatments: Reports: Thyroidectomy GI Surgery/Treatments: Reports: Colonoscopy, EGD Reproductive Surgery/Treatment: Reports: Hysterectomy, Oophorectomy, Salpingectomy Anesthesia Reactions: None Hx Family Anesthesia Reaction: No History of Motion Sickness: No - Social History Smoking Status: Never smoker Hx Chewing Tobacco Use: No Second Hand Exposure: No Substance Use Type: does not use Alcohol Intake: never Alcohol Intake Frequency: does not drink - Pertinent Findings Laboratory: CBC and BMP 06/27/18 04:05 06/28/18 04:05 BMP 06/28/18 04:05 Sodium 143 Potassium 3.8 Chloride 107 Carbon Dioxide 27 BUN 8.0 Creatinine 0.6 L Glucose 107 Calcium 8.7 - Physical Exam Respiratory Exam: Present: lungs clear, bilateral breath sounds equal Cardiovascular Exam: Present: regular rate and rhythm, no murmur - Airway Assessment Mallampati Score: II TMD: 2 Fingerbreadths - ASA ASA Score: 2 - Plan Anesthesia: General TIVA - Discussion Discussion: Discussed risks/options/alternatives of anesthesia and questions answered. Patient consents. Nursing pain assessment noted. Attestation Statement: Prior to the delivery of any anesthetic medication, I examined the patient, developed the plan, obtained the patient's consent and discussed the risk and benefits of the procedure with the patient/guardian. - Additional Information Seen by Anesthesia: Yes
[2018-06-28] MEDS: LR 1,000 ML IV SCH ×2 (12:12→15:03)
--- NOTE | 2018-06-28 12:46 | General Surgery Procedure Note ---
Date of Procedure: 06/28/18 Surgeon: Arnaldo Postoperative Diagnosis: colitis Procedure: sigmoidoscopy Estimated Blood Loss: See Anesthesia Record.
[2018-06-28] MEDS: NS with KCL 20 mEq 1,000 ML IV SCH (16:04)
--- NOTE | 2018-06-28 17:31 | Progress Note ---
- Date 06/28/18 Subjective: Patient is seen this afternoon following her procedure. She reports she is feeling very well. She's had 2 very small loose stools since the procedure and has had chicken broth and apple juice with no probs. She is hopeful to get "real" food for supper and go home tomorrow. She has no n/v, abdominal pain, fever or chills. She tells me that Dr. Mcintosh said everything looked completely normal and he did not take any biopsies. Objective Vital signs: Temperature 97.0 F 06/28/18 14:18 Pulse Rate 62 06/28/18 16:18 Respiratory Rate 18 06/28/18 17:17 Blood Pressure 154/71 H 06/28/18 17:17 Pulse Oximetry 98 06/28/18 17:17 Height/Weight/BMI: Height 1.68 m Weight 56 kg Body Mass Index 20.6 - Constitutional Present: no acute distress, well nourished, well developed - Routine HEENT Exam Head: Present: normocephalic, atraumatic - Routine Respiratory Exam Present: CTA bilaterally. Absent: wheezes - Routine Cardiovascular Exam Present: RRR, no murmur - Routine Abdominal Exam Present: soft, non distended, non tender Comments: hyperactive BS's - Routine Extremities Exam Present: no edema, normal capillary refill - Routine Skin Exam Present: dry, warm - Routine Neurological Exam Present: alert, oriented X3 - Routine Lymphatic Exam Lymphatic: Absent: adenopathy - Routine Psychiatric Exam Present: normal affect, cooperative Results - Labs CBC & Chem 7: 06/27/18 04:05 06/28/18 04:05 Microbiology Results: Microbiology 06/23/18 08:05 Peripheral/Iv Start Blood Culture - Final No Growth After 5 Days 06/23/18 10:03 Peripheral/Iv Start Blood Culture - Final No Growth After 5 Days 06/26/18 14:41 Stool Clostridium difficile Antigen (CLOVIS) - Final Assessment and Plan (1) GI bleed Current visit: Yes Status: Acute Assessment and Plan: Assessment: Severe sepsis as indicated by tachycardia, tachypnea, leukocytosis, elevated lactate. Acute colitis, descending and sigmoid, presumed infectious. + c diff on GI panel 06/24/18. Neg c diff antigen and toxin 06/26/18. History of colitis secondary to E. coli ~2013. Hypertension. Pre-diabetes. GERD. Mixed hyperlipidemia, diet controlled. Postsurgical hypothyroidism - follows with Dr. Russell. History of intermittent palpitations. Situational anxiety. Plan S/P flex sig by Dr Mcintosh today which was completely normal. Will advance diet, and assuming she tolerates this well, may consider DC tomorrow. Continue vancomycin until discharge and then DC DVT Prophylaxis: SCD's Resuscitation Status: Full Code - Time spent with patient Time with patient PN: 25 minutes - Physician Narrative Physician: Gordon Blackman MD Narrative: Date: 06/28/18 Time: 1834 Have independently interviewed and examined pt. Chart reviewed. Case discussed with CM, Dr Mcintosh, and my PA. Care plan developed with my supervision; agree with above. Doing well this evening. Tolerated Flex sig. Appetite feels good-hungry and wanting to eat, but is taking intake slowly. No nausea or ab pain. Bowels much less frequent. No f/c. Breathing well. Ambulating in halls well. Lungs: clear bilaterally CV: regular AB: soft nt/nd MSE: awake alert appropriate Plan: Advance diet to regular. Will stop IVF later this evening. Recheck lab in am. If patient continues to do well tomorrow, hope for discharge to home. Hospital Course Summary Disclaimer: The visit summary below is not to be considered part of the above Progress Note. Hospital Course: 06/23/18: Admit to inpatient status under the care of Dr. Santillan. CT in ED revealed descending and sigmoid colitis. 06/23/18 Patient was given 1L NS bolus in ED. Will continue NS with KCL 20 mEq IV at 125cc/hr for hydration. Zosyn was initiated in ED for coverage of suspected GI pathogens. Will continue Zosyn for antimicrobial coverage while awaiting stool culture as well as blood cultures. Lactate 2.1 on admission. Monitor serial lactates. Currently afebrile. Clear liquid diet, low sugar for bowel rest. Hemoglobin stable on admission. Monitor closely given grossly bloody diarrhea. Morphine for pain control and zofran as needed for nausea/vomiting. Upon discharge, her [facility] will be [facility]. 06/24/18 Will recheck a stool panel today. Continue on IV Zosyn for antimicrobial coverage. Overall bleeding has slowed down today. Continue with liquid diet at this time. Monitor blood pressure- on lisinopril and atenolol Hgb down 2 gms from admission however is stable She voices concern regarding TSH of 0.49. She would like to talk with Dr Russell regarding dose changes as she has been symptomatic 06/25/18 Repeat GI panel flagged positive for C. diff, surprising given negative sample less than 24 hours earlier. ? false positive. Continue oral Vanco and IV Zosyn at this time. WBC trending down, currently 15.4. Hematochezia resolved this am though she reports she continues to have frequent episodes of diarrhea. Hgb stable @ 13.9. Electrolytes are stable though she is at high risk for electrolyte/renal issues with frequent GI losses. Continue IVF. Sx of hair loss, dry skin and palpitations discussed with Dr. Russell; Currently on Synthroid 50 mcg on weekdays and 100 mcg on weekends. He recommends to take 50 mcg 6 days/wk and take 100 mcg on Monday only. 06/26/18 Leukocytosis resolved. C diff Ag/Toxin to confirm acute c diff infection is pending. Pt continues on oral Vanco (initiated 06/24/18) . IV Zosyn DC'd 06/25/18. BP improved with starting amlodipine this am. Electrolytes are stable though she is at high risk for electrolyte/renal issues with frequent GI losses. Continue IVF. 06/27/18 C diff Ag/Toxin returned late today and are negative. This leaves diagnosis uncertain. Discussed with Dr. Mcintosh and have tentatively planned flexible sigmoidoscopy in the morning. Continue oral vancomycin at this time on the outside chance that classic C. difficile findings are seen at sigmoidoscopy tomorrow. Remains on clear liquids, nothing by mouth after midnight with fleets enema early a.m., repeat enemas may be needed. Blood pressure remains modestly elevated but minimally active, continue amlodipine in conjunction with home medications. Hemoglobin, electrolytes stable. 06/28/18 S/P flex sig by Dr Mcintosh today which was completely normal. Will advance diet, and assuming she tolerates this well, may consider DC tomorrow. Continue vancomycin until discharge and then DC.
--- NOTE | 2018-06-28 18:28 | Operative Note ---
DATE OF OPERATION 06/28/2018 PREOPERATIVE DIAGNOSES 1. Acute episode of cramping lower abdominal pain, diarrhea, rectal bleeding and leukocytosis. 2. Mild thickening of the wall of the descending colon suggestive of mild descending colitis and moderate thickening of the wall of the sigmoid colon suggesting moderate sigmoid colitis demonstrated on 06/23/2018 CT scan of the abdomen and pelvis. OPERATION Flexible sigmoidoscopy (attempted colonoscopy). SURGEON Dr. Mcintosh ANESTHESIA TIVA ASA Class 2 FINDINGS The patient did have an acute angulation of the colon located 20 cm proximal to the anal verge which did prevent the colonoscope from being advanced up proximal to this level. Mucosa of the colon appeared normal at this acute angulation. The mucosa of the colon at the distal half of the sigmoid colon and at the rectum appeared completely normal. It had a light pink color. The mucosa was not erythematous or edematous. There were no ulcers present anywhere. There were no yellow plaques or pseudomembranes anywhere suggestive of pseudomembranous colitis. The mucosa had a normal appearance at the distal half of the sigmoid colon and at the rectum. DESCRIPTION OF OPERATION The patient was brought to the endoscopy room. The patient was placed on a cart in the endoscopy room. The patient was placed in left lateral recumbent position on the cart in the endoscopy room. The patient was premedicated with intravenous sedation medication administered by the nurse business analytics specialist. The Olympus colonoscope was used. The colonoscope was introduced into the rectum. The colonoscope was advanced up through the rectum and colon up to a level about 20 cm proximal to the anal verge. The colonoscope could not be advanced any further beyond this level because of some acute angulation of the colon at this level. Attempts to advance the colonoscope beyond this level were unsuccessful. The colonoscope was therefore withdrawn out through the colon and rectum and removed from the patient. Findings throughout the procedure were as described above. The patient did continue to receive intravenous sedation medication administered by the nurse business analytics specialist throughout the procedure. The patient did tolerate the procedure well. ERIC
[2018-06-29] MEDS: VANCOMYCIN 250mg/5ml ORAL LIQ PO SCH ×2 (04:04→09:12)
[2018-06-29] MEDS: LEVOTHYROXINE 50 MCG TABLET PO SCH (05:49)
[2018-06-29 07:48] VITALS: PULSE 71; RESP 16; O2SAT 95
[2018-06-29] MEDS: LISINOPRIL 20 MG TABLET PO SCH (09:12)
[2018-06-29] MEDS: AMLODIPINE 5 MG TABLET PO SCH (09:12)
[2018-06-29] MEDS: LACTOBACILLUS (15B cfu) CAPSULE PO SCH (09:12)
[2018-06-29] MEDS: ATENOLOL 25 MG TABLET PO SCH (09:12)
[2018-06-29 11:10] VITALS: BP 123/65; TEMP 98.2
--- NOTE | 2018-06-29 11:22 | Progress Note ---
- Date 06/29/18 Subjective: F/U: Severe sepsis, Acute colitis Doing well this am. Tolerating oral intake and food without problems. No ab pain , bloating/cramps, or nausea. Passing flatus. No diarrhea. Not having fevers or chills. Ambulating well. Breathing well. Feels ready to go home. Objective Vital signs: Temperature 98.2 F 06/29/18 11:09 Pulse Rate 71 06/29/18 11:09 Respiratory Rate 16 06/29/18 11:09 Blood Pressure 123/65 06/29/18 11:09 Pulse Oximetry 95 06/29/18 11:09 Height/Weight/BMI: Height 1.68 m Weight 56.1 kg Body Mass Index 20.6 - Constitutional Present: no acute distress, well nourished, well developed, average body habitus , cooperative - Routine HEENT Exam Head: Present: normocephalic, atraumatic Eye: Present: EOMI, PERRL, normal accommodation ENT: Present: mucous membranes moist - Routine Respiratory Exam Present: CTA bilaterally. Absent: respiratory distress, wheezes, crackles - Routine Cardiovascular Exam Present: RRR, no murmur - Routine Abdominal Exam Present: soft, normoactive bowel sounds, non distended, non tender. Absent: guarding - Routine Extremities Exam Present: no edema, pulses intact. Absent: cyanosis, clubbing - Routine Musculoskeletal Exam Musculoskeletal: Present: no clubbing or cyanosis, normal strength - Routine Skin Exam Present: dry, warm - Routine Neurological Exam Present: alert, oriented X3, moving all extremities, vision grossly intact, hearing grossly intact, normal speech. Absent: motor deficit, altered mental status - Routine Psychiatric Exam Present: normal affect, normal thought process, cooperative Results - Labs CBC & Chem 7: 06/29/18 04:08 06/29/18 04:08 Microbiology Results: Microbiology 06/23/18 08:05 Peripheral/Iv Start Blood Culture - Final No Growth After 5 Days 06/23/18 10:03 Peripheral/Iv Start Blood Culture - Final No Growth After 5 Days 06/26/18 14:41 Stool Clostridium difficile Antigen (CLOVIS) - Final Assessment and Plan (1) Severe sepsis Current visit: Yes Status: Acute (2) Colitis Current visit: Yes Status: Acute (3) GI bleed Current visit: Yes Status: Acute Assessment and Plan: Assessment: Severe sepsis as indicated by tachycardia, tachypnea, leukocytosis, elevated lactate - (POA) - resolved Acute colitis, descending and sigmoid, presumed infectious. + c diff on GI panel 06/24/18. Neg c diff antigen and toxin 06/26/18. Acute GI bleed secondary to colitis Hypertension Pre-diabetes GERD Mixed hyperlipidemia, diet controlled Postsurgical hypothyroidism - follows with Dr. Russell History of intermittent palpitations Situational anxiety History of colitis secondary to E. coli ~2013 Plan Doing well today. Tolerating oral intake. Bowel function improved. Lab normal. Vitals stable. Will discharge to home - stable condition. Diet: bland diet, increasing as able. Avoid carbohydrates and sugars. Fiber in diet for bowel health. Yogurt/probiotics as able. Activities as tolerated. Medication changes: Decrease thyroid medication by 1 table a week - will take 0.1mg of Synthroid on Monday only. Norvasc 5mg daily started to help with blood pressure control. F/U with Katey Bella in 1 week for evaluation. See orders for details. Time spent with patient care and discharge greater than 30 minutes. DVT Prophylaxis: SCD's Resuscitation Status: Full Code - Physician Narrative Physician: Gordon Blackman MD Narrative: Date: 06/29/18 Time: 1116 Hospital Course Summary Disclaimer: The visit summary below is not to be considered part of the above Progress Note. Hospital Course: 06/23/18: Admit to inpatient status under the care of Dr. Santillan. CT in ED revealed descending and sigmoid colitis. Upon discharge, her care will be returned to Katey Colmenares. 06/23/18 Patient was given 1L NS bolus in ED. Will continue NS with KCL 20 mEq IV at 125cc/hr for hydration. Zosyn was initiated in ED for coverage of suspected GI pathogens. Will continue Zosyn for antimicrobial coverage while awaiting stool culture as well as blood cultures. Lactate 2.1 on admission. Monitor serial lactates. Currently afebrile. Clear liquid diet, low sugar for bowel rest. Hemoglobin stable on admission. Monitor closely given grossly bloody diarrhea. Morphine for pain control and zofran as needed for nausea/vomiting. 06/24/18 Will recheck a stool panel today. Continue on IV Zosyn for antimicrobial coverage. Overall bleeding has slowed down today. Continue with liquid diet at this time. Monitor blood pressure- on lisinopril and atenolol. Hgb down 2 gms from admission however is stable. She voices concern regarding TSH of 0.49. She would like to talk with Dr Russell regarding dose changes as she has been symptomatic. 06/25/18 Repeat GI panel flagged positive for C. diff, surprising given negative sample less than 24 hours earlier. ? false positive. Continue oral Vanco and IV Zosyn at this time. WBC trending down, currently 15.4. Hematochezia resolved this am though she reports she continues to have frequent episodes of diarrhea. Hgb stable @ 13.9. Electrolytes are stable though she is at high risk for electrolyte/renal issues with frequent GI losses. Continue IVF. Sx of hair loss, dry skin and palpitations discussed with Dr. Russell; Currently on Synthroid 50 mcg on weekdays and 100 mcg on weekends. He recommends to take 50 mcg 6 days/wk and take 100 mcg on Monday only. 06/26/18 Leukocytosis resolved. C diff Ag/Toxin to confirm acute c diff infection is pending. Pt continues on oral Vanco (initiated 06/24/18) . IV Zosyn DC'd 06/25/18. BP improved with starting amlodipine this am. Electrolytes are stable though she is at high risk for electrolyte/renal issues with frequent GI losses. Continue IVF. 06/27/18 C diff Ag/Toxin returned late today and are negative. This leaves diagnosis uncertain. Discussed with Dr. Mcintosh and have tentatively planned flexible sigmoidoscopy in the morning. Continue oral vancomycin at this time on the outside chance that classic C. difficile findings are seen at sigmoidoscopy tomorrow. Remains on clear liquids, nothing by mouth after midnight with fleets enema early a.m., repeat enemas may be needed. Blood pressure remains modestly elevated but minimally active, continue amlodipine in conjunction with home medications. Hemoglobin, electrolytes stable. 06/28/18 S/P flex sig by Dr Mcintosh today which was completely normal. No evidence of pseudomembrane. Will advance diet, and assuming she tolerates this well, may consider DC tomorrow. Continue vancomycin until discharge and then DC. 06/29/18 Doing well today. Tolerating oral intake. Bowel function improved. Lab normal. Vitals stable. Will discharge to home - stable condition. Diet: bland diet, increasing as able. Avoid carbohydrates and sugars. Fiber in diet for bowel health. Yogurt/probiotics as able. Activities as tolerated. Medication changes: Decrease thyroid medication by 1 table a week - will take 0.1mg of Synthroid on Monday only. Norvasc 5mg daily started to help with blood pressure control. F/U with Katey Bella in 1 week for evaluation. See orders for details.
--- NOTE | 2018-06-29 11:42 | Discharge Summary ---
Discharge Information Date of admission: 06/23/18 10:55 Anticipated date of discharge: 06/29/18 Attending Physician: Gordon Blackman MD Primary care physician: Katey Bella APRN Consults: Physician consult: Dr Mcintosh Reason for Exam: Colitis Consult to Anesthesiology Reason For Exam: Normal Procedure - Discharge Diagnosis (1) Severe sepsis Status: Acute (2) Colitis Status: Acute (3) GI bleed Status: Acute Discharge diagnosis Severe sepsis as indicated by tachycardia, tachypnea, leukocytosis, elevated lactate - (POA) - resolved Acute colitis, descending and sigmoid, presumed infectious. + c diff on GI panel 06/24/18. Neg c diff antigen and toxin 06/26/18. C diff ruled out Associated conditions and complications Acute GI bleed secondary to colitis Hypertension Pre-diabetes GERD Mixed hyperlipidemia, diet controlled Postsurgical hypothyroidism - follows with Dr. Russell History of intermittent palpitations Situational anxiety History of colitis secondary to E. coli ~2013 - Procedures Procedures: DATE OF OPERATION: 06/28/2018 OPERATION: Flexible sigmoidoscopy (attempted colonoscopy). PREOPERATIVE DIAGNOSES 1. Acute episode of cramping lower abdominal pain, diarrhea, rectal bleeding and leukocytosis. 2. Mild thickening of the wall of the descending colon suggestive of mild descending colitis and moderate thickening of the wall of the sigmoid colon suggesting moderate sigmoid colitis demonstrated on 06/23/2018 CT scan of the abdomen and pelvis. FINDINGS The patient did have an acute angulation of the colon located 20 cm proximal to the anal verge which did prevent the colonoscope from being advanced up proximal to this level. Mucosa of the colon appeared normal at this acute angulation. The mucosa of the colon at the distal half of the sigmoid colon at the rectum appeared completely normal. It had a light pink color. The mucosa was not erythematous or edematous. There were no ulcers present anywhere. There were no yellow plaques of pseudomembranes anywhere suggestive of pseudomembranous colitis. The mucosal had a normal appearance at the distal half of the sigmoid colon and at the rectum. SURGEON: Dr. Mcintosh - Laboratory Labs: Admit Lab 06/23/18 08:05 WBC 18.7 H Hgb 15.8 Hct 44.6 MCV 86.8 Plt Count 231 Neutrophils % (Manual) 81.0 H Band Neutrophils % 5.0 Lymphocytes % (Manual) 10.0 L Reactive Lymphs % 3.0 H Monocytes % (Manual) 1.0 Admit Lab 06/23/18 06/23/18 08:05 10:03 Sodium 144 Potassium 3.8 Chloride 104 Carbon Dioxide 27 Anion Gap 13 BUN 15.0 Creatinine 0.7 Estimated Creat Clear 50 GFR Calculation 83 BUN/Creatinine Ratio 21 Glucose 158 H Calculated Osmolality 281 H Calcium 9.4 Total Bilirubin 1.00 AST 28 ALT 19 Alkaline Phosphatase 84 Total Protein 8.0 Albumin 4.8 Globulin 3.2 Albumin/Globulin Ratio 1.5 Lipase 61 Plasma Lactate 2.1 TSH Test 06/23/18 14:20 TSH 0.49 06/29/18 04:08 06/29/18 04:08 - Microbiology Microbiology 06/23/18 08:05 Peripheral/Iv Start Blood Culture - Final No Growth After 5 Days 06/23/18 10:03 Peripheral/Iv Start Blood Culture - Final No Growth After 5 Days 06/26/18 14:41 Stool Clostridium difficile Antigen (CLOVIS) - Final: NEGATIVE - Radiology Radiology: Date of Exam: 06/23/18 Type of Exam: CT abdomen pelvis w con Findings: The lung bases are clear. The liver, gallbladder, spleen, pancreas and adrenal glands are within normal limits. The kidneys are normal. Bladder is normal. Uterus is absent. Diffuse wall thickening and inflammation in the mid to distal sigmoid colon. There is also mild wall thickening in the descending colon. The remaining bowel appears normal. Bone windows show no acute findings. Impression: Extensive left-sided colitis could represent infectious or inflammatory colitis. Ulcerative colitis is within the differential. History of Present Illness HPI: Lurdes Barreto is a very pleasant 68-year-old female patient whom routinely follows with Katey Bella APRN. She reports that yesterday while running errands, she abruptly began to have lower abdominal pain and cramping. She immediately went home and reports that she "nearly passed out" and "became very sweaty and nauseated" due to her pain. She denies any vomiting. No fevers, chest pain or shortness of breath. After having a large bout of diarrhea, she reports that her pain improved. Unfortunately, as the night progressed, she began having bright red blood diarrhea stools with severe abdominal pain and cramping about every 15 minutes throughout the night. She has history of E. coli colitis about 4-5 years ago which resulted in a 6 day hospitalization. 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 She denies any recent travel, bad food exposure, new medications, recent antibiotics or sick contacts. She presented to [facility] ED this morning, 06/23/18, for further evaluation. Upon arrival, she was tachycardic (HR 113) and tachypneic (RR 22) with hypertension (182/90). Labs revealed leukocytosis (WBC 18.7) with 5% bandemia. Hemoglobin was stable despite reports of significant about of bright red blood in stools. Electrolytes were relatively unremarkable with the exception of hyperglycemia (Glu 158) with a known history of prediabetes. Lactate was elevated at 2.1 and UA was unremarkable. CT abdomen/ pelvis revealed mild descending colon and moderate sigmoid colitis. She reports that she has previously been seen by Dr. Mcintosh with a "normal" EGD and colonoscopy about 4 years ago. She denies any history with her or her family for ulcerative colitis, Crohn's disease, colon polyps or diverticular disease. Due to her apparent severe sepsis most likely secondary to her colitis and hematochezia, Dr. Santillan was consulted and she was admitted into inpatient status for further evaluation, close hemodynamic monitoring, IV fluids and IV antibiotics. While in the ED, she received 1L NS and Zosyn was initiated for empiric antimicrobial coverage of suspected GI pathogens given her medication allergies and intolerances. For complete details of the H&P refer to that document. Objective Vital signs: Temperature 98.2 F 06/29/18 11:09 Pulse Rate 71 06/29/18 11:09 Respiratory Rate 16 06/29/18 11:09 Blood Pressure 123/65 06/29/18 11:09 Pulse Oximetry 95 06/29/18 11:09 Height/Weight/BMI: Height 1.68 m Weight 56.1 kg Body Mass Index 20.6 Hospital Course This is a general summary of the patient's hospital course. For more details refer to the complete medical record. Hospital course: 06/23/18: Admit to inpatient status under the care of Dr. Santillan. CT in ED revealed descending and sigmoid colitis. Upon discharge, her care will be returned to Katey Dedra. 06/23/18 Patient was given 1L NS bolus in ED. Will continue NS with KCL 20 mEq IV at 125cc/hr for hydration. Zosyn was initiated in ED for coverage of suspected GI pathogens. Will continue Zosyn for antimicrobial coverage while awaiting stool culture as well as blood cultures. Lactate 2.1 on admission. Monitor serial lactates. Currently afebrile. Clear liquid diet, low sugar for bowel rest. Hemoglobin stable on admission. Monitor closely given grossly bloody diarrhea. Morphine for pain control and zofran as needed for nausea/vomiting. 06/24/18 Will recheck a stool panel today. Continue on IV Zosyn for antimicrobial coverage. Overall bleeding has slowed down today. Continue with liquid diet at this time. Monitor blood pressure- on lisinopril and atenolol. Hgb down 2 gms from admission however is stable. She voices concern regarding TSH of 0.49. She would like to talk with Dr Russell regarding dose changes as she has been symptomatic. 06/25/18 Repeat GI panel flagged positive for C. diff, surprising given negative sample less than 24 hours earlier. ? false positive. Continue oral Vanco and IV Zosyn at this time. WBC trending down, currently 15.4. Hematochezia resolved this am though she reports she continues to have frequent episodes of diarrhea. Hgb stable @ 13.9. Electrolytes are stable though she is at high risk for electrolyte/renal issues with frequent GI losses. Continue IVF. Sx of hair loss, dry skin and palpitations discussed with Dr. Russell; Currently on Synthroid 50 mcg on weekdays and 100 mcg on weekends. He recommends to take 50 mcg 6 days/wk and take 100 mcg on Monday only. 06/26/18 Leukocytosis resolved. C diff Ag/Toxin to confirm acute c diff infection is pending. Pt continues on oral Vanco (initiated 06/24/18) . IV Zosyn DC'd 06/25/18. BP improved with starting amlodipine this am. Electrolytes are stable though she is at high risk for electrolyte/renal issues with frequent GI losses. Continue IVF. 06/27/18 C diff Ag/Toxin returned late today and are negative. This leaves diagnosis uncertain. Discussed with Dr. Mcintosh and have tentatively planned flexible sigmoidoscopy in the morning. Continue oral vancomycin at this time on the outside chance that classic C. difficile findings are seen at sigmoidoscopy tomorrow. Remains on clear liquids, nothing by mouth after midnight with fleets enema early a.m., repeat enemas may be needed. Blood pressure remains modestly elevated but minimally active, continue amlodipine in conjunction with home medications. Hemoglobin, electrolytes stable. 06/28/18 S/P flex sig by Dr Mcintosh today which was completely normal. No evidence of pseudomembrane. Will advance diet, and assuming she tolerates this well, may consider DC tomorrow. Continue vancomycin until discharge and then DC. 06/29/18 Doing well today. Tolerating oral intake. Bowel function improved. Lab normal. Vitals stable. Will discharge to home - stable condition. Diet: bland diet, increasing as able. Avoid carbohydrates and sugars. Fiber in diet for bowel health. Yogurt/probiotics as able. Activities as tolerated. Medication changes: Decrease thyroid medication by 1 table a week - will take 0.1mg of Synthroid on Monday only. Norvasc 5mg daily started to help with blood pressure control. F/U with Katey Bella in 1 week for evaluation. See orders for details. Time spent with patient: discharge greater than 30 minutes Resuscitation Status: Full Code Discharge Plan - Discharge Disposition Discharge Date: 06/29/18 Disposition: 01 Discharged Home, Self-Care *Condition: Stable Reason For Visit (Visit label in EMR): Colitis, gi bleed - Discharge Medications *Discharge Medications: New Amlodipine [Norvasc] 5 mg PO DAILY #30 tab Levothyroxine Sodium [Synthroid] 50 mcg PO MOTUWETHFRSA@0600 tab Levothyroxine Sodium [Synthroid] 100 mcg PO SERRANO@0600 tab Continue Atenolol [Tenormin] 12.5 mg PO BID Cholecalciferol (Vitamin D3) [Vitamin D3] 2,000 unit PO DAILY Zestril (lisinopril) 40 mg tablet 20 mg PO BID #90 tab Discontinued Levothyroxine Tab [Synthroid] 50 mcg PO MOTUWETHFR Levothyroxine Tab [Synthroid] 100 mcg PO SUSA - Discharge Packet/Instructions *Diet: [place] diet, increasing as able. Avoid carbohydrates and sugars. Fiber in diet to help with colon health. Yogurt/probiotic as able. *Activity: As tolerated *Pain Management/Treatment: Continue prior home pain medications. *Wound Care: N/A Additional Instructions: Your thyroid medication was decrease during the hospitalization. Take 0.1mg of thyroid medication on MONDAY only. Norvasc 5mg was started daily during your hospitalization. Continue this medication to help improve your blood pressure. Do monitor and record your blood pressure in the outpatient setting. *Expected Signs/Symptoms: Improvement of bowel function. *Notify Physician if: Temp >100.4. Increasing abdominal pain/cramping. Increased loose stools. Difficulty breathing. Any other worrisome symptom. *During Business Hours Contact: Katey Bella. *After Business Hours Contact: Call [facility] ([phone]) and have your care provider contacted. *Pending Lab/Results: No Pending Lab - Referrals/Follow Up *Referrals/Follow Up: Katey Bella, [employer] [Primary Care Provider] - 1 Week (Hospital follow up for sepsis/colitis. Norvasc started to help blood pressure. ) - Patient Handouts Patient Handouts: Clostridium Difficile Infection (DC), Clostridium Difficile Infection (IP) - Dismissal Complete Discharge Instructions are:: Complete Physician Narrative - Narrative Physician: Gordon Blackman MD Attestation Narrative: Date: 06/29/18 Time: 1138 I have independently interviewed and examined patient prior to discharge. See my progress note for details. Medically stable for discharge to home.
[2018-07-01] MEDS ORDERED: LEVOTHYROXINE 100 MCG TABLET PO SCH (06:00)
== END 2018-06-29 12:15 | disposition home or self-care (01) | DRG 872 ==
LOC: EDHOLD 07:31 → ED 07:31 → SUATTDRO 10:55 → OBSVTOIN 10:55 → MED 11:30
PROVIDERS: ADMIT Internal Medicine; ATTEND Hospitalist